=== PATIENT | female | born 1980 | race Caucasian/White ===

== ENCOUNTER 2021-07-12 00:19 | Inpatient (IN) | payer OTHER, SELFPAY ==
[2021-07-12 00:50] VITALS: BP 109/64; PULSE 53; RESP 18; TEMP 36.5; O2SAT 97
[2021-07-12 01:58] VITALS: BMI 31.7
--- NOTE | 2021-07-12 02:07 | PC.ADMIT ---
Patient is a 40 year old woman who was seen at [facility] ER after contacting [facility] on 07/05/21 for SI with a plan to OD. Tox screen was positive for opiates and cocain. She admits to using heroin. She reported having past thoughts of suicide but was not currently having any thoughts of self harm and feels safe on the unit and would seek help. She is and reports that her also uses substances. She reports that her and her are currently homeless. There is a reported history of depression and PTSD with past admissions to psychiatric unit in [place] and [place], she has not been a patient at [facility] prior to this admission.
[2021-07-12 06:00] VITALS: BP 108/67; PULSE 62; TEMP 36.7; O2SAT 97
[2021-07-12] MEDS: LORazepam 0.5 MG TABLET PO ×2 (09:20→18:15)
[2021-07-12] MEDS: methADONE HCl 20 MG/2 ML ORAL.CONC 75 MG PO (09:21)
--- NOTE | 2021-07-12 11:49 | P.CONHOSP_ITS ---
History of Present Illness Data of Consult Service Date: 07/12/21 Primary Care Provider: Renato Beckham MD HPI Reason for consult: Medical H&P This is a 40 yo F who reports no chronic medical problems. She is admitted to the inpatient psych unit. She denies any current medical complaints. PSH Partial Hysterectomy, b/l Knee surgeries PMH Denies FH DM SH smokes 1/2 PPD denies EtOH Reports heroin use (snorts) -- on methadone, reports started several days ago Review of Systems Review of Systems: negative except HPI PMFSH Social History Household Members: None Housing: Homeless Do you presently have visiting nurse or other home services: No Unable to assess alcohol history related to: Unknown Patient Tobacco Use Status: Current everyday Tobacco user Tobacco use type: Cigarette Cigarette Packs Per Day: 0.5 Cigarettes Per Day: 10.0 Smoked in Last 30 Days: Yes e-Cigarette/Vaping Use: Never Used Patient Interested in Nicotine Replacement: Yes Patient Given Instructions on How to Stop Smoking: Yes Date Education Initiated: 07/15/21 Second Hand Smoke Exposure: Yes Use of substances other than those prescribed or required for medical reasons: Yes Substance Use Type: Crack/Cocaine, Heroin, Marijuana and Caffiene Substance Use Frequency: Recent Binge Last Used Substance: Days (ago) Last Used Substance Other:: 07/08/21 Currently Displaying Signs/Symptoms of Drug Intoxication Withdrawal: No Any prior treatment program specific to substance use: No Have you been hit, kicked, punched, or otherwise hurt by someone within the past year? If so, by whom?: No Do you feel safe in your current relationship?: Yes Is there a partner from a previous relationship who is making you feel unsafe now?: No Are you made to feel afraid or neglected: No Advance Directives: No Advance Directives Information Provided: No Do you have thoughts of harming others: None Do you have a plan to hurt others: No Plan Recently lost weight without trying: Yes How much weight loss: 14-23 pounds Eating poorly because of decreased appetite: Yes Nutrition screen score: 5 Nutrition Risks: No Nutritional Risk : No Meds Allergies Allergy/AdvReac Type Severity Reaction Status Date / Time coconut Allergy Severe Hives Verified 07/12/21 01:35 carbamazepine [From Tegretol] Allergy Intermediate Hives Verified 07/12/21 01:35 bupropion [From Wellbutrin] AdvReac Severe Hives Verified 07/12/21 01:35 Active Medications: Current Medications Acetaminophen (Acetaminophen 325 Mg Tablet) 650 mg PO Q6H PRN PRN Reason: Headache/Pain Mild Scale (1-3) Al Hydroxide/Mg Hydroxide (Magnesium Hydrox/Alum Hydrox 30 Ml Oral.Susp) 30 ml PO Q6H PRN PRN Reason: Heartburn/Nausea Cyclobenzaprine HCl (Cyclobenzaprine Hcl 5 Mg Tablet) 5 mg PO TID [facility] Last Admin: 07/12/21 08:22 Dose: Not Given Documented by: Hydroxyzine HCl (Hydroxyzine Hcl 25 Mg Tablet) 25 mg PO BEDTIME PRN PRN Reason: Anxiety Lorazepam (Lorazepam 0.5 Mg Tablet) 0.5 mg PO Q8H PRN PRN Reason: Anxiety Last Admin: 07/12/21 09:20 Dose: 0.5 mg Documented by: Magnesium Hydroxide (Milk Of Magnesia 30 Ml Oral.Susp) 30 ml PO DAILY PRN PRN Reason: Constipation Methadone HCl (Methadone Hcl 20 Mg/2 Ml Oral.Conc) 75 mg PO DAILY [facility] Last Admin: 07/12/21 09:21 Dose: 75 mg Documented by: Trazodone HCl (Trazodone Hcl 50 Mg Tablet) 50 mg PO BEDTIME PRN PRN Reason: Insomnia Home Medications Medication Instructions Recorded Confirmed Last Taken Type alprazolam 1 mg tablet 1 tab PO DAILY PRN 07/12/21 07/12/21 Unknown History alprazolam 2 mg tablet 1 tab PO BID 07/12/21 07/12/21 Unknown History cyclobenzaprine 5 mg tablet 1 tab PO TID 07/12/21 07/12/21 Unknown History methadone 10 mg/mL oral syringe 75 mg PO DAILY 07/12/21 07/12/21 07/10/21 History (FOR ORAL USE ONLY) Physical Exam Vital Signs and Narrative: Vital Signs: Last Vital Signs Temp 98.1 F 07/12/21 06:00 Pulse 62 07/12/21 06:00 Resp 18 07/12/21 00:50 BP 108/67 07/12/21 06:00 Pulse Ox 97 07/12/21 06:00 BMI result Body Mass Index 31.7 Const: Other: General - no acute distress, appears comfortable Cardiovascular - regular rate and rhythm, S1-S2 Lungs - normal respiratory effort, clear to auscultation bilaterally, no wheezing Abdomen - soft, nontender, no rebound or guarding Extremities - no edema bilaterally Neuro - awake and alert, no focal deficits; CN 2-12 in tact b/l Assessment and Plan (1) Routine medical exam: Status: Acute Plan This is a 40 yo with no significant PMH (except OUD on Methadone), who is admitted to the inpatient psych unit. Medical consult requested for routine medical H&P. Patient has no active medical issues. Continue Methadone as you are currently doing. Medically stable, will sign off. Please reconsult PRN
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
[2021-07-12 18:00] VITALS: BP 117/65; PULSE 55; RESP 16; TEMP 36.4; O2SAT 97
[2021-07-12] MEDS: QUEtiapine Fumarate 50 MG TABLET PO (19:12)
[2021-07-12] MEDS: QUEtiapine Fumarate 100 MG TABLET PO (19:54)
[2021-07-13 06:00] VITALS: BP 110/68; PULSE 58; RESP 16; TEMP 36.6; O2SAT 98
[2021-07-13] MEDS: methADONE HCl 20 MG/2 ML ORAL.CONC 75 MG PO (08:58)
[2021-07-13] MEDS: DULoxetine HCl 30 MG CAPSULE.DR PO (08:58)
[2021-07-13] MEDS: QUEtiapine Fumarate 50 MG TABLET PO ×2 (09:40→14:39)
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
[2021-07-13 18:58] VITALS: BP 124/68; PULSE 55; RESP 16; TEMP 36.3; O2SAT 98
[2021-07-13] MEDS: QUEtiapine Fumarate 100 MG TABLET PO (20:17)
[2021-07-13] MEDS: Milk of Magnesia 30 ML ORAL.SUSP PO (20:19)
[2021-07-14 06:00] VITALS: BP 106/62; PULSE 78; RESP 16; TEMP 36.5; O2SAT 96
[2021-07-14] MEDS: methADONE HCl 20 MG/2 ML ORAL.CONC 75 MG PO (08:46)
[2021-07-14] MEDS: DULoxetine HCl 30 MG CAPSULE.DR PO (08:47)
[2021-07-14] MEDS: QUEtiapine Fumarate 50 MG TABLET PO ×2 (09:52→16:36)
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
[2021-07-14 16:38] VITALS: BP 109/72; PULSE 66; RESP 16; TEMP 36.2; O2SAT 96
[2021-07-14] MEDS: QUEtiapine Fumarate 100 MG TABLET PO (19:59)
[2021-07-15 06:00] VITALS: BP 100/54; PULSE 51; RESP 16; TEMP 36.6; O2SAT 97
[2021-07-15] MEDS: methADONE HCl 20 MG/2 ML ORAL.CONC 75 MG PO (08:27)
[2021-07-15] MEDS: DULoxetine HCl 30 MG CAPSULE.DR PO (08:28)
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
[2021-07-15] MEDS: QUEtiapine Fumarate 50 MG TABLET PO ×2 (11:14→15:41)
[2021-07-15 16:31] VITALS: BP 92/55; PULSE 65; TEMP 36; O2SAT 97
[2021-07-15] MEDS: QUEtiapine Fumarate 100 MG TABLET PO (20:29)
[2021-07-16 06:00] VITALS: BP 119/58; PULSE 55; RESP 16; TEMP 36.8; O2SAT 96
[2021-07-16] MEDS: methADONE HCl 20 MG/2 ML ORAL.CONC 75 MG PO (08:46)
[2021-07-16] MEDS: DULoxetine HCl 30 MG CAPSULE.DR PO (08:46)
[2021-07-16] MEDS: QUEtiapine Fumarate 50 MG TABLET PO (09:58)
--- NOTE | 2021-07-16 11:01 | PC.NURSE ---
Addendum entered by Steff Go RN 07/16/21 13:38: pt changed her mind and would like nicotine replacement Original Note: PT REFUSES FLU VACCINATION. DOES NOT WANT NICOTINE REPLACEMENT ORDERED.
[2021-07-16] MEDS: Nicotine 21 MG PATCH.TD24 TRANSDERMA (15:07)
[2021-07-16 16:45] VITALS: BP 120/58; PULSE 58; TEMP 36.9; O2SAT 98
[2021-07-16] MEDS: LORazepam 1 MG TABLET PO (17:06)
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
[2021-07-16] MEDS: QUEtiapine Fumarate 25 MG TABLET 75 MG PO (18:59)
[2021-07-16] MEDS: QUEtiapine Fumarate 50 MG TABLET 150 MG PO (20:35)
[2021-07-17] MEDS: Nicotine 21 MG PATCH.TD24 TRANSDERMA (08:40)
[2021-07-17] MEDS: methADONE HCl 20 MG/2 ML ORAL.CONC 75 MG PO (08:40)
[2021-07-17] MEDS: DULoxetine HCl 60 MG CAPSULE.DR PO (08:41)
[2021-07-17] MEDS: QUEtiapine Fumarate 25 MG TABLET 75 MG PO (08:41)
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
[2021-07-17] MEDS: Naloxone HCl Nasal TAKE HOME 4 MG SPRAY NOSTRILALT (13:04)
--- NOTE | 2021-07-17 14:48 | P.EN_ITS ---
Event Note Date of Service: 07/17/21 Event Note: Met with patient to discuss process of switching from methadone to Suboxone. She reports that she is being discharged his afternoon, and will follow up with clinic, [facility] regarding wishing to do this.
== END 2021-07-17 14:05 | disposition home or self-care (01) | DRG 751 ==
PROVIDERS: Admitting Provider Psychiatry & Neurology Psychiatry; PCP Colon & Rectal Surgery; Visit Provider Psychiatry & Neurology Psychiatry
DX: F33.1 Major depressive disorder, recurrent, moderate (principal); R45.851 Suicidal ideations; F11.20 Opioid dependence, uncomplicated; F17.210 Nicotine dependence, cigarettes, uncomplicated; F43.12 Post-traumatic stress disorder, chronic; F14.10 Cocaine abuse, uncomplicated; Z71.6 Tobacco abuse counseling; Z79.899 Other long term (current) drug therapy

== ENCOUNTER 2022-12-09 09:01 | Emergency (ER) | payer OTHER, SELFPAY ==
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
[2022-12-09 09:10] VITALS: BP 148/68; PULSE 69; RESP 18; TEMP 36; O2SAT 95; BMI 31.9
[2022-12-09] MEDS: predniSONE 20 MG TABLET 60 MG PO (11:41)
[2022-12-09] MEDS: Ibuprofen 800 MG TABLET PO (11:41)
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
--- NOTE | 2022-12-09 11:52 | PC.NURSE ---
miroslava wrap applied to pts left knee, pt reports relief with wrap
[2022-12-09 12:15] LABS: IDNOW Serial# 08D9AD1C; Strep A Nucleic Acid Negative (Negative)
== END 2022-12-09 12:22 | disposition home or self-care (01) ==
PROVIDERS: Physician Assistant; Emergency Provider Emergency Medicine
DX: M25.562 Pain in left knee (principal); R07.0 Pain in throat; F17.210 Nicotine dependence, cigarettes, uncomplicated; Z71.6 Tobacco abuse counseling; Z79.899 Other long term (current) drug therapy
CPT/HCPCS: 73564; 87651; 99283

== ENCOUNTER 2023-05-17 11:59 | Emergency (ER) | payer OTHER, SELFPAY ==
--- NOTE | ~2023-05-17 | XR_ITS ---
EXAMINATION: XR HAND, LEFT CLINICAL INFORMATION: Fracture, reduced and swollen. COMPARISON: None available. TECHNIQUE: PA, lateral, and oblique views of the left hand. FINDINGS: The bones and soft tissues are normal. No fracture. Alignment is anatomic. Joint spaces are maintained. No erosions or soft tissue calcifications. XR/XR hand LT min 3V IMPRESSION: Normal left hand.
[2023-05-17 12:12] VITALS: BP 108/72; PULSE 78; RESP 18; TEMP 36.9; O2SAT 92; BMI 37.6
--- NOTE | 2023-05-17 12:33 | ED_ITS ---
HPI - Fall General Chief Complaint: Fall Stated Complaint: Hand injury Time Seen by Provider: 05/17/23 13:47 Source: patient Mode of arrival: ambulatory Limitations: no limitations History of Present Illness HPI Narrative: 42 year old female, 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, with pmhx significant for PTSD, opioid use disorder, and MDD presents to the ED today with left hand pain s/p mechanical trip and fall from standing height last night. Reports carrying bags into her house when she tripped and fell into her refrigerator, hitting the left side of her body. Denies head strike or LOC. Endorses pain/ swelling to her left ring finger and diffuse body aches at present secondary to fall. Has been taking Motrin at home with some relief. Denies headache, dizziness, vision changes, nausea, vomiting, numbness/tingling/weakness to LUE. Related Data Home Medications Medication Instructions Recorded Confirmed alprazolam 1 mg tablet 1 tab PO DAILY PRN anxiety 07/12/21 07/12/21 methadone 10 mg/mL oral syringe 75 mg PO DAILY 07/12/21 07/12/21 (FOR ORAL USE ONLY) Previous Rx's Medication Instructions Recorded duloxetine 60 mg capsule,delayed 60 mg PO DAILY 30 days #30 caps 07/17/21 release nicotine 21 mg/24 hr daily 21 mg transdermal DAILY PRN 07/17/21 transdermal patch smoking cessation 28 days #28 ea quetiapine 100 mg tablet 150 mg (1.5 x 100 mg) PO BEDTIME 07/17/21 PRN insomnia 30 days #30 tabs quetiapine 25 mg tablet 75 mg (3 x 25 mg) PO TID PRN 07/17/21 anxiety 30 days #120 tabs naproxen 500 mg tablet 500 mg PO BID PRN pain 7 days #14 12/09/22 tabs prednisone 20 mg tablet 40 mg (2 x 20 mg) PO DAILY 5 days 12/09/22 #10 tabs cyclobenzaprine 5 mg tablet 5 mg PO BEDTIME PRN muscle spasm 05/17/23 #4 tabs lidocaine 5 % topical patch 1 patch topical DAILY #15 ea 05/17/23 (Lidoderm) naproxen 500 mg tablet 500 mg PO Q8-12H PRN pain (scale 05/17/23 score 4-6) #14 tabs Allergies Allergy/AdvReac Type Severity Reaction Status Date / Time coconut Allergy Severe Hives Verified 04/09/23 15:24 carbamazepine [From Tegretol] Allergy Intermediate Hives Verified 04/09/23 15:24 bupropion [From Wellbutrin] AdvReac Severe Hives Verified 04/09/23 15:24 Review of Systems Review of Systems: Constitutional: No fever, chills, fatigue, night sweats, weight changes ENT/Mouth: No ear pain, hearing loss, nasal congestion, sinus pain, rhinorrhea, sore throat Eyes: No eye pain, swelling, redness, vision changes, discharge Cardio: No chest pain, palpitations, SALDAÑA, orthopnea, peripheral edema Pulm: No SOB, cough, sputum, wheezing, dyspnea, hemoptysis GI: No nausea, vomiting, hematemesis, abdominal pain, diarrhea, constipation, hematochezia, melena : No irregular bleeding, dysuria, frequency, urgency, hesitancy, hematuria, flank pain, urinary flow changes, urinary incontinence or retention MSK: No back pain, neck pain, joint pain, +myalgias, +left hand pain Skin: No lesions, rashes Neuro: No weakness, numbness, paresthesias, LOC, dizziness, headache All other systems reviewed and are negative. [facility] Past Medical History Attestation statement: The following information was validated with the patient. Source: old records reviewed and nursing notes reviewed Social History Social History Household Members: None Housing: Homeless Do you presently have visiting nurse or other home services: No Unable to assess alcohol history related to: Unknown Patient Tobacco Use Status: Current everyday Tobacco user Tobacco use type: Cigarette Cigarette Packs Per Day: 0.5 Cigarettes Per Day: 10.0 e-Cigarette/Vaping Use: Never Used Second Hand Smoke Exposure: Yes Substance Use Type: Crack/Cocaine, Heroin, Marijuana and Caffiene Advance Directives: No Advance Directives Information Provided: No service: No Sexual orientation: Did not discuss Physical Exam Vital Signs: Vital Signs: Last Vital Signs Temp 98.4 F 05/17/23 12:12 Pulse 78 05/17/23 12:12 Resp 18 05/17/23 12:12 BP 108/72 05/17/23 12:12 Pulse Ox 92 05/17/23 12:12 O2 Del Method Room Air 05/17/23 12:12 BMI result Body Mass Index 37.6 Vital signs stable Const: General: cooperative, healthy appearing, comfortable, no acute distress, alert and awake Orientation/consciousness: patient oriented x3 Limitations: no limitations HEENT: Head: Yes No palpable skull fracture present, Yes normocephalic and Yes atraumatic Eyes: General: appearance normal, both eyes and all related structures Neck: Neck: Yes normal visual inspection and Yes full ROM Resp: Effort & Inspection: normal respiratory effort Auscultation: clear to auscultation bilaterally Cardio: Other: + 2+ radial pulses to left upper extremi ty Rate: regular rate Rhythm: regular rhythm GI: Inspection: Yes normal to inspection and No abdominal wall ecchymosis Palpation (GI): Soft to palpation and nontender Back/Spine/Pelvis: Other: No midline spinous tenderness. No paraspinal muscle tenderness. No step off deformity. Skin: General skin exam: no rashes or lesions noted Neuro: General: patient oriented x3, gait normal and moves all extremities Extrem: Other: + ecchymosis and swelling noted to the l eft 4th proximal phalange. Slight dec in ROM to left 4th PIP secondary to swelling. Full ROM intact to MCP and DIP of 4th digit. Finger to thumb opposition intact. No palpable warmth or fluctuance. No palpable deformity. Full ROM intact to left wrist. No snuffbox tenderness. No broken nails. 2+ radial pulses intact. General: Yes normal exam except as noted Course Course Course Narrative: This is an RME: Additional HPI, ROS, PE not included below will be deferred to primary provider. Patient is a 42-year-old female who presents emergency department for evaluation after mechanical trip and fall. Denies head strike or loss of consciousness. Landed on the left side, diffuse myalgia. Reporting pain predominantly to the left hand Reevaluation(s) Reevaluation #1: 1350-- x-ray left hand does not exhibit acute fracture or dislocation. Patient likely has a contusion with diffuse myalgias secondary to falling into the refrigerator. Informed patient of imaging results. Advised her to ice her hand as needed for discomfort. She may take Tylenol and ibuprofen as needed at home for pain. Will provide her with a referral to Ortho. Discussed worrisome signs and symptoms and when to return to the emergency department. Patient has remained stable throughout ED visit today. All questions answered at this time. Patient is agreeable with disposition and stable for discharge. Medications Administered Discontinued Medications Generic Name Dose Route Start Last Admin Trade Name Gasper PRN Reason Stop Dose Admin Acetaminophen 975 mg 05/17/23 14:05 05/17/23 14:30 Acetaminophen 325 Mg Tablet PO 05/17/23 14:06 975 mg ONCE ONE Administration Ketorolac Tromethamine 15 mg 05/17/23 14:40 05/17/23 14:45 Ketorolac Tromethamine 15 Mg/Ml Vial IM 05/17/23 14:41 15 mg ONCE ONE Administration Medical Decision Making Medical Decision Making MDM Narrative: 42 year old female with pmhx significant for PTSD, opioid use disorder, and MDD presents to the ED today with left hand pain s/p mechanical trip and fall from standing height [employer]ATION [employer]INE[employer]. Vital signs stable. Patient is nontoxic appearing and in no acute distress. On exam, there is cchymosis and swelling noted to the left 4th proximal phalange. Slight dec in ROM to left 4th PIP secondary to swelling. Full ROM intact to MCP and DIP of 4th digit. Finger to thumb opposition intact. No palpable warmth or fluctuance. No palpable deformity. Full ROM intact to left wrist. No snuffbox tenderness. No broken nails. 2+ radial pulses intact. Exam nonfocal. Clinical concern for MSK sprain/strain, fracture, dislocation. Unlikely compartment syndrome, neurovascular compromise, threat to limb, scaphoid fracture. Unlikely concussion, ICH, CVA/TIA. Plan for imaging, pain control, and re-evaluation. Differential Diagnosis Differential Diagnoses: The differential diagnosis associated with the presentation includes As above. Admission/Observation Not indicated. Independent Interpretation I performed an independent interpretation of an: Plain X-Ray Interpretation: X-ray left hand without fracture or dislocation, agree with radiologist's interpretation. Radiology Impression Discussion of test interpretation with radiology: I have reviewed the radiologist's reading. Radiologist Impression: XR hand LT min 3V IMPRESSION: Normal left hand. External Record Review External record reviewed: Inpatient record Prescription Management I considered prescription management with: Pain Medication Critical Care Time Critical Care Time Critical Care Time: No Discharge Plan Discharge Clinical Impression: Left hand pain Patient Disposition: Home, Self-Care Instructions: R.I.C.E. Treatment (ED) Additional Instructions: Your imaging studies today did not show acute fracture. Your pain is likely musculoskeletal. Use ice several times per day for 20 minutes at a time for the next 48 hours and then change to heat. Flexeril is a muscle relaxer. Take this as needed for body aches/ muscle spasm. Do not drink, drive, or operate heavy machinery while taking this as it makes you drowsy. Take this at night prior to going to bed. Naproxen is an anti-inflammatory / pain medication. Take with food. Do not take this with Ibuprofen or other NSAIDS as this can increase risk of GI bleeding. In addition you may take Tylenol at home. Follow up with your primary care provider as needed If your pain worsens, if you develop new numbness, tingling, weakness, loss of bowel or bladder function call 911 or return to the ER immediately for evaluation. Prescriptions: New lidocaine [Lidoderm] 5 % adhesive patch,medicated 1 patch topical DAILY Qty: 15 0RF Rx Instructions: leave on most painful area for up to 12 hrs naproxen 500 mg tablet 500 mg PO Q8-12H PRN (Reason: pain (scale score 4-6)) Qty: 14 0RF cyclobenzaprine 5 mg tablet 5 mg PO BEDTIME PRN (Reason: muscle spasm) Qty: 4 0RF No Action alprazolam 1 mg tablet 1 tab PO DAILY PRN (Reason: anxiety) methadone 10 mg/mL Syringe 75 mg PO DAILY nicotine 21 mg/24 hr Patch 24 Hour 21 mg transdermal DAILY PRN (Reason: smoking cessation) 28 Days Qty: 28 0RF duloxetine 60 mg Capsule,Delayed Release(Dr/Ec) 60 mg PO DAILY 30 Days Qty: 30 0RF quetiapine 25 mg Tablet 75 mg PO TID PRN (Reason: anxiety) 30 Days Qty: 120 0RF quetiapine 100 mg tablet 150 mg PO BEDTIME PRN (Reason: insomnia) 30 Days Qty: 30 0RF prednisone 20 mg tablet 40 mg PO DAILY 5 Days Qty: 10 0RF naproxen 500 mg tablet 500 mg PO BID PRN (Reason: pain) 7 Days Qty: 14 0RF Referrals: [facility] [Provider Group] Interventions: ED Discharge Assessment Last Done: 05/17/23 14:50 Discharge Date/Time: 05/17/23 14:52
[2023-05-17] MEDS: Acetaminophen 325 MG TABLET 975 MG PO (14:30)
[2023-05-17] MEDS: Ketorolac Tromethamine 15 MG/ML VIAL IM (14:45)
== END 2023-05-17 14:52 | disposition home or self-care (01) ==
PROVIDERS: Emergency Provider Student in an Organized Health Care Education/Training Program; PCP Nurse Practitioner Family
DX: M79.642 Pain in left hand (principal); Z91.81 History of falling
CPT/HCPCS: 73130; 96372; 99283; 99284; J1885

== ENCOUNTER 2023-06-12 10:43 | Outpatient (REF) | payer OTHER, SELFPAY ==
--- NOTE | ~2023-06-12 | XR_ITS ---
EXAMINATION: XR HAND, LEFT CLINICAL INFORMATION: Pain left hand fourth digit. COMPARISON: 05/17/2023. TECHNIQUE: PA, lateral, and oblique views of the left hand. FINDINGS: Moderate degenerative changes in the first carpometacarpal joint with joint space narrowing and hypertrophic change. Mild degenerative changes in scattered IP joints and MCP joints. No displaced fracture of the fourth digit is appreciated. Ulnar minus variance XR/XR hand LT min 3V IMPRESSION: 1. Moderate degenerative changes in the first carpometacarpal joint. 2. Mild degenerative changes in scattered IP joints and MCP joints. 3. Recommend follow up imaging in 10-14 days if fracture is suspected.
--- NOTE | ~2023-06-12 | XR_ITS ---
EXAMINATION: XR KNEE, LEFT XR KNEE STANDING, BILATERAL CLINICAL INFORMATION: Fracture, reduced and swollen. COMPARISON: None available. TECHNIQUE: AP standing view of bilateral knees. Lateral and sunrise views of the left knee. FINDINGS: LEFT KNEE: Three views of the left knee demonstrate trace joint effusion. Moderate medial joint space narrowing. Tiny tricompartmental osteophytes. RIGHT KNEE: Single AP view of the right knee demonstrates moderate medial joint space narrowing. Tiny medial and lateral marginal osteophytes. XR/XR knee LT 2V IMPRESSION: 1. Moderate degenerative changes left knee. 2. Moderate degenerative changes right knee.
--- NOTE | ~2023-06-12 | XR_ITS ---
EXAMINATION: XR KNEE, LEFT XR KNEE STANDING, BILATERAL CLINICAL INFORMATION: Fracture, reduced and swollen. COMPARISON: None available. TECHNIQUE: AP standing view of bilateral knees. Lateral and sunrise views of the left knee. FINDINGS: LEFT KNEE: Three views of the left knee demonstrate trace joint effusion. Moderate medial joint space narrowing. Tiny tricompartmental osteophytes. RIGHT KNEE: Single AP view of the right knee demonstrates moderate medial joint space narrowing. Tiny medial and lateral marginal osteophytes. XR/XR knee standing BI IMPRESSION: 1. Moderate degenerative changes left knee. 2. Moderate degenerative changes right knee.
== END 2023-06-12 10:44 | disposition home or self-care (01) ==
LOC: HO.HOSX 10:43
PROVIDERS: PCP Nurse Practitioner Family; Visit Provider Physician Assistant
DX: S69.92XA Unspecified injury of left wrist, hand and finger(s), initial encounter (principal); M25.642 Stiffness of left hand, not elsewhere classified; M17.12 Unilateral primary osteoarthritis, left knee; M25.561 Pain in right knee; X58.XXXA Exposure to other specified factors, initial encounter; Y93.9 Activity, unspecified; Y92.9 Unspecified place or not applicable; Y99.9 Unspecified external cause status; Z79.899 Other long term (current) drug therapy
CPT/HCPCS: 73130; 73560; 73565; 99202

== ENCOUNTER 2023-06-12 10:43 | Outpatient (AMB) | payer OTHER, SELFPAY ==
--- NOTE | 2023-06-12 10:49 | MHC.OFFVIS ---
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 Patient reports that her knee gave out causing her to fall on her left side hitting her face into the refrigerator. She presented to [facility] [place] [facility] the following day where xrays were done and placed in a finger splint. Currently she is unable to bend her finger at her PIP. States numbness and tingling. Hx of left hand middle finger reconstruction. She also has complaints of knee pain and lower back pain that radiates down her leg. She describes the pain as a liquid fire and will wake up in pain. She is unable to stand for more than a minute due to her pain. Hx of back injury as a child. Hx of multiple left knee surgery. Allergies coconut Allergy (Severe, Verified 04/09/23 15:24) Hives carbamazepine [From Tegretol] Allergy (Intermediate, Verified 04/09/23 15:24) Hives bupropion [From Wellbutrin] Adverse Reaction (Severe, Verified 04/09/23 15:24) Hives musle relaxer Adverse Reaction (Uncoded 06/12/23 10:57) ineffective, tegretol allergy Medication List - Last Reconciled 06/12/23 by Deven George PA-C alprazolam 1 tab PO DAILY PRN cyclobenzaprine 5 mg PO BEDTIME PRN duloxetine 60 mg PO DAILY 30 days lidocaine 5% (Lidoderm) 1 patch topical DAILY methadone 75 mg PO DAILY naproxen 500 mg PO BID PRN 7 days naproxen 500 mg PO Q8-12H PRN nicotine 21 mg transdermal DAILY PRN 28 days prednisone 40 mg (2 x 20 mg) PO DAILY 5 days quetiapine 75 mg (3 x 25 mg) PO TID PRN 30 days quetiapine 150 mg (1.5 x 100 mg) PO BEDTIME PRN 30 days HPI [employer] REPRESENTATIVE-Left hand pain HPI Details 42-year-old female who presents to the office today for evaluation of left ring finger injury . She states her right knee gave out, causing her to fall on her left side hitting her face into the refrigerator, 05/16/23. She was seen at ED the next day where x-rays were performed and she was placed in a finger splint. She currently states she has numbness and tingling and she is unable to bend her finger at PIP. She has a history of left middle finger reconstruction. She also c/o ?liquid fire? pain in her left knee and lower back which radiates down to her leg. Her pain is aggravated after waking up and she is unable to stand for more than a minute due to her pain. She finds relief with ibuprofen. She has a history of back injury as a child. She has a history of multiple left knee surgeries. [facility] Surgical History (Updated 06/12/23 @ 11:10 by NIKKI Rosario) Hx of hand surgery Hx of arthroscopy of left knee Social History (Updated 06/12/23 @ 10:59 by NIKKI Rosario) Household Members: None Housing: Homeless Do you presently have visiting nurse or other home services: No Unable to assess alcohol history related to: Unknown Patient Tobacco Use Status: Current everyday Tobacco user Tobacco use type: Cigarette Cigarette Packs Per Day: 0.5 Cigarettes Per Day: 10.0 e-Cigarette/Vaping Use: Never Used Second Hand Smoke Exposure: Yes Substance Use Type: Crack/Cocaine, Heroin, Marijuana and Caffiene service: No Current occupational status: employed 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, 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 Sexual orientation: Did not discuss Review of Systems Const All systems reviewed & are unremarkable except as noted in HPI and below Physical Exam Const General: cooperative, healthy appearing, comfortable, no acute distress, well developed and alert Orientation/consciousness: patient oriented x3 HEENT Head: Yes normal to inspection, Yes normocephalic and Yes atraumatic Eyes General: appearance normal, both eyes and all related structures Resp Effort & Inspection: normal respiratory effort and able to speak in complete sentences Cardio Rate: regular rate Peripheral pulses: Peripheral pulses 2+ throughout GI Palpation (GI): Soft to palpation Skin Lesions: no lesions Rashes: no rashes Neuro General: patient oriented x3 Extrem Other: Left ring finger: Diffused swelling through the proximal end with tenderness along the PIP joint. No laxity with stress testing. Extensor tendons and FDP and FDS are intact. Left knee: Skin intact, no erythema or joint effusion. Tenderness along the medial and lateral joint line. Full ROM with crepitus. Negative Frank?s. No ligamentous laxity. NVI. Results Reviewed Results Reviewed: Xrays were obtained in the office today and personally reviewed by me of the left hand show avulsion fracture along the pip joint of the ring finger Xrays were obtained in the office today and personally reviewed by me of the left knee are negative for acute fracture or dislocation. mild oa present Assessment & Plan Assessment & Plan (1) Stiffness of finger joint of left hand: Code(s): M25.642 - Stiffness of left hand, not elsewhere classified (2) Injury of collateral ligament of finger: Code(s): S69.90XA - Unspecified injury of unspecified wrist, hand and finger(s), initial encounter Qualifiers: Encounter type: initial encounter Laterality: left Qualified Code(s): S69.92XA - Unspecified injury of left wrist, hand and finger(s), initial encounter (3) Osteoarthritis of left knee: Code(s): M17.12 - Unilateral primary osteoarthritis, left knee Qualifiers: Osteoarthritis type: primary Qualified Code(s): M17.12 - Unilateral primary osteoarthritis, left knee Plan Left ring finger: I stressed the importance of ROM of the left ring finger and we did work on some exercises in the office today. She will begin course of occupational therapy to improve her motion. I would like to see her back in 2-3 weeks for ROM check of her finger, sooner if needed. Left knee: An MRI of the left knee has been ordered to further evaluate the integrity of meniscus. She will see us back once the scan is complete. Orders: Orders MR knee LT wo con Today M17.12 - Unilateral primary osteoarthritis, left knee XR knee standing BI Today M25.561 - Pain in right knee, M25.562 - Pain in left knee XR knee LT 2V Today M25.562 - Pain in left knee XR hand LT min 3V Today M79.642 - Pain in left hand OT Evaluation and Treatment Today M25.642 - Stiffness of left hand, not elsewhere classified, S69.90XA - Unspecified injury of unspecified wrist, hand and finger(s), initial encounter Patient Instructions: Scribed for Deven George PA-C, by Jose Jenkins nuclear medicine medical director, on 06/12/2023 at 10:45 AM EST. IDeven PA-C, have personally reviewed and agree with the information entered by the scribe. Coding Level of Care Code New Pt Level 3 (95989) Diagnoses Stiffness of finger joint of left hand M25.642 Injury of collateral ligament of finger of left hand, initial encounter S69.92XA Encounter type: initial encounter Laterality: left Primary osteoarthritis of left knee M17.12 Osteoarthritis type: primary
== END 2023-06-12 12:05 | disposition home or self-care (01) ==
PROVIDERS: PCP Nurse Practitioner Family; Visit Provider Physician Assistant
DX: M25.642 Stiffness of left hand, not elsewhere classified (principal); S69.92XA Unspecified injury of left wrist, hand and finger(s), initial encounter; M17.12 Unilateral primary osteoarthritis, left knee
CPT/HCPCS: 99203

== ENCOUNTER 2023-06-25 13:00 | Outpatient (RCR) | payer OTHER, SELFPAY ==
--- NOTE | 2023-06-16 15:47 | MHC.OT.OEV ---
[address] [phone] F: [phone] Occupational Therapy Evaluation Patient Name: Ksenia Heath Diagnosis: (L)avulsion fracture along the pip joint of the ring finger Date of Onset: 05/16/23 Date of Surgery: Attending Provider: Deven George Prescribed Treatment: MD Follow Up Appointment: History of Current Condition: Patient is a 42 year old right handed female was was initially seen in the ED for a fall in the kitchen on 05/16/2023. She stated she her knees gave out and Cartwheeled into the refrigerator slamming her fingers into it. X-rays were taking which did not indicate a fx, however she was seen again and x-rays were retaken which indicated a (L)avulsion fx along the PIP joint of the 4th digit. She was referred to skilled OT by CHELO Jean for gentle range of motion. 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 (I)ADLs/IADLs Living Situation, Family and/or Social Support: Lives with partner Current Level of Function and Occupation Self Care, Employment, Leisure: mod (A) ADLs partner complete task Sleep: (I) Driving: Partner drives Vision: Balance: Pain Assessment Pain Score: 10 Pain Scale Used: Pain Location and Description: 0/10 10/10 when using it or it gets bumped Aggravating Factors: Alleviating Factors: Ibuprofen, neproxen Skin and Soft Tissue Assessment Skin and Soft Tissue: Comments: WFL Nerve assessment Ulnar Nerve: Median Nerve: Radial Nerve: Comments: Sensory Assessment Temperature: Light Touch: Proprioception: Vibration: Comments: Edema Assessment Upper Extremity: Lower Extremity: Comments: Dexterity Assessment Dexterity: Comments: Special Tests Comments: Finger opposition- impaired AROM(PROM) Strength Cervical Cervical Flexion: Cervical Extension: Cervical Lateral Flexion: Cervical Rotation: Comments: Shoulder Flexion: Extension: Abduction: Internal Rotation: External Rotation: Comments: Flexion: Extension: Abduction: Internal Rotation: External Rotation: Comments: Elbow Flexion: Extension: Pronation: Supination: Comments: Flexion: Extension: Pronation: Supination: Comments: Wrist Flexion: Extension: Ulnar Deviation: Radial Deviation: Comments: Flexion: Extension: Ulnar Deviation: Radial Deviation: Comments: Thumb Thumb CMC Flexion: Thumb MCP Flexion: Thumb IP Flexion: Radial Abduction: Palmar Abduction: Mcqueeney (Kapandji 0-10): Comments: Digits Index MCP: PIP: DIP: Long MCP: PIP: DIP: Ring MCP: PIP: DIP: Small MCP: PIP: DIP: Comments: Gross Grasp: Lateral Pinch: Two-Point Pinch: Three-Jaw Da: Comments: Patient Education Primary Language: Industry Analyst Required: No Current Knowledge: Teaching Method: Education Needs Identified on Evaluation: How did patient/family demonstrate learning? Barriers to Learning: Readiness for Learning: Who was educated? Comments: Plan of Care Assessment: Patient was referred to skilled OT for a (L)fx of the 4th digit on 05/16/2024. Patient stated her knees gave out and Cartwheeled into the refrigerator slamming her fingers into it Knee gave out and fell into the fridge and bent fingers backwards. She wore splint for 3 weeks and then it was d/c'd. 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 She reported 0/10 pain at rest and it can increase to 10/10 pain if it is bumped or she over uses it. She stated pins and needles in 3-5th digits when over using it. Her current ROM measurements are as follows: (L)PIP 71* 1st, 61* 2nd, 49* 3rd, 58* 4th. Cardiology Nurse Practitioner strength was not tested due to injury. Edema was present in the 4th and 5th digits. Quick DASH=70.5 indicating patient's perceived UE impairment during self care tasks. Based on inital evaluation patient's current level of function is mod (A) self care tasks as patient presents with impaired ROM, impaired functional activity tolerance as she reports 10/10 at times, impaired strength and impaired self care tasks. Due to the documented impairments it is recommended that patient receive skilled OT in order to achieve her PLOF and return to work. Thank you for your referral. STG Duration: 2 weeks Short Term Goals: Patient will report 8/10 pain in (L)ring finger Patient will increase (R)4th finger ROM by 10* for improved performance during self care tasks Patient will decrease edema in (R)finger LTG Duration: 4 weeks Jail Goals: Patient will report 0/10 pain in (L)ring finger Patient will have WFL ROM in (L)ring finger Patient will be (I) with HEP Frequency and Duration: The patient will be seen 2x a week for 4 weeks Treatment Plan: Therapeutic Exercise Therapeutic Activity Home Exercise Program Patient Education Edema Control ADL Training Fluidotherapy MHP Cold Packs Kinesiotaping OT eval and treat Electronically Signed By: Arlene Shine OTR/L, CLT Reviewed/agree with student documentation: Therapist: Please sign and return to therapist, Thank you for your referral.
== END 2023-07-31 12:53 | disposition home or self-care (01) ==
LOC: HO.OT 13:00
PROVIDERS: PCP Nurse Practitioner Family; Visit Provider Physician Assistant
DX: M25.642 Stiffness of left hand, not elsewhere classified (principal); S69.92XD Unspecified injury of left wrist, hand and finger(s), subsequent encounter
CPT/HCPCS: 97110; 97140; 97166

== ENCOUNTER 2023-07-01 11:32 | Outpatient (REF) | payer OTHER, SELFPAY ==
--- NOTE | ~2023-07-01 | XR_ITS ---
EXAMINATION: XR LUMBOSACRAL SPINE CLINICAL INFORMATION: Dorsalgia. COMPARISON: None available. TECHNIQUE: AP and lateral views of the lumbar spine and lateral view of the lumbosacral junction. FINDINGS: The vertebral bodies and posterior elements are normal. The disc spaces are preserved and the vertebral alignment is normal. There is very mild anterior spondylosis of the L4 and L5 upper endplates. The paraspinal soft tissues are normal. XR/XR lumbar spine 2-3V IMPRESSION: 1. No acute fracture or spondylolisthesis is seen. 2. The lumbar disc spaces are well-maintained. 3. There is very mild anterior spondylosis of the L4 and L5 upper endplates.
== END 2023-07-01 11:33 | disposition home or self-care (01) ==
LOC: HO.HOSX 11:32
PROVIDERS: Visit Provider Physical Medicine & Rehabilitation
DX: M53.3 Sacrococcygeal disorders, not elsewhere classified (principal); S39.012A Strain of muscle, fascia and tendon of lower back, initial encounter
CPT/HCPCS: 72100; 99202

== ENCOUNTER 2023-07-01 11:53 | Outpatient (AMB) | payer OTHER, SELFPAY ==
--- NOTE | 2023-07-01 12:01 | A.OFFVIS_ITS ---
Intake Vital Signs 07/01/23 12:06 Height 5 ft 8 in Weight 247 lb BMI 37.6 Intake Visit Reasons: Newprob-Back pain Intake Note: Ksenia is a 42 year old female who presents today for a evaluation of her mid/lower back, DOI 05/16/23. Patient reports ongoing pain for a couple of months. She states that her pain moves down to her legs. Patient reports her mid back pain is new like a couple weeks. Pain is worse when walking and standing/sitting for a long time. Allergies coconut Allergy (Severe, Verified 07/01/23 12:10) Hives carbamazepine [From Tegretol] Allergy (Intermediate, Verified 07/01/23 12:10) Hives cyclobenzaprine [From Flexeril] Allergy (Verified 07/01/23 12:18) Rash bupropion [From Wellbutrin] Adverse Reaction (Severe, Verified 07/01/23 12:10) Hives musle relaxer Adverse Reaction (Uncoded 06/12/23 10:57) ineffective, tegretol allergy Medication List - Last Reconciled 07/01/23 by Yuliya Chisholm MD duloxetine 60 mg PO DAILY 30 days lidocaine 5% (Lidoderm) 1 patch topical DAILY methadone 75 mg PO DAILY nicotine 21 mg transdermal DAILY PRN 28 days quetiapine 75 mg (3 x 25 mg) PO TID PRN 30 days quetiapine 150 mg (1.5 x 100 mg) PO BEDTIME PRN 30 days HPI HPI Comments History of Present Illness Details Here with partner. 05/16/23 knee gave out while she was car rying shopping bags. Hit left upper/hand. Had seen ortho for left finger. Knee MRI pending. Could not stand up due to pain on back the next day. Nowadays, midline, goes down to left side. Feels like fire like . Numbness on same area, left thigh area. Reports chronic back and sciatica. It did go left side before. Last MRI 2000. Injections [id number] in [place]. No surgery. [facility] Surgical History (Updated 06/12/23 @ 11:10 by NIKKI Rosario) Hx of hand surgery Hx of arthroscopy of left knee Social History (Updated 06/12/23 @ 10:59 by NIKKI Rosario) Household Members: None Housing: Homeless Do you presently have visiting nurse or other home services: No Unable to assess alcohol history related to: Unknown Patient Tobacco Use Status: Current everyday Tobacco user Tobacco use type: Cigarette Cigarette Packs Per Day: 0.5 Cigarettes Per Day: 10.0 e-Cigarette/Vaping Use: Never Used Second Hand Smoke Exposure: Yes Substance Use Type: Crack/Cocaine, Heroin, Marijuana and Caffiene service: No Current occupational status: employed 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 Patient was appropriately conversant and oriented. Good historian. MSK: No specific abnormalities found on inspection of the spine and all extremities. No pain with palpation over the lumbar area. Tender on quadratus lumborum. Tender on SI joint left. Lumbar ROM was full. Bilateral hip, knee and ankle ROM WNL. No ligamentous laxity or crepitance. No increased effusion. Straight-leg raising test negative. FABERE test positive bilateral. Strength is 5/5 in all muscle groups tested. No increased tone noted. Neurological: Neurologic examination of the upper and lower extremities was nonfocal with intact sensation, muscle stretch reflexes and without focal motor deficits . Martínez?s negative bilaterally. Babinski was down going bilaterally. Clonus was negative. Gait is antalgic without loss of balance. Results Reviewed Results Reviewed: I independently reviewed the results of the following: Lumbar x-rays done today in the office showed preserved disc spaces. I reviewed records from the following: Ortho Assessment & Plan Assessment & Plan (1) Lumbar strain: Code(s): S39.012A - Strain of muscle, fascia and tendon of lower back, initial encounter Qualifiers: Encounter type: initial encounter Qualified Code(s): S39.012A - Strain of muscle, fascia and tendon of lower back, initial encounter (2) Sacroiliac joint dysfunction of left side: Code(s): M53.3 - Sacrococcygeal disorders, not elsewhere classified Plan Fall last April, sustaining lumbar strain and left SI joint dysfunction. No fracture seen on x-ray done today. No signs of neurologic deficits. Referred to physical therapy. Patient eager to proceed. Assessment and plan discussed with patient, and patient was agreeable. All questions were answered thoroughly. Evaluate 4 to 6 weeks again. Yuliya Chisholm MD, JESUS Board Certified, [place] Board of Physical Medicine and Rehabilitation (ABPMR) Board Certified, [place] Board of Electrodiagnostic Medicine (ABEM) Orders: Orders XR lumbar spine 2-3V Today M54.9 - Dorsalgia, unspecified Coding Level of Care Code New Pt Level 4 (34937) Diagnoses Strain of lumbar region, initial encounter S39.012A Encounter type: initial encounter Sacroiliac joint dysfunction of left side M53.3
[2023-07-01 12:06] VITALS: BMI 37.6
== END 2023-07-01 13:15 | disposition home or self-care (01) ==
PROVIDERS: PCP Nurse Practitioner Family; Visit Provider Physical Medicine & Rehabilitation
DX: S39.012A Strain of muscle, fascia and tendon of lower back, initial encounter (principal); M53.3 Sacrococcygeal disorders, not elsewhere classified
CPT/HCPCS: 99204

== ENCOUNTER 2023-07-08 14:11 | Outpatient (AMB) | payer OTHER, SELFPAY ==
--- NOTE | 2023-07-08 14:16 | A.OFFVIS_ITS ---
Intake Intake Visit Reasons: OV-Left hand pain-follow up Intake Note: Anna a 42 year old female presents today as a new patient for an evaluation of left hand ring finger, DOI 05/16/23. Patient reports that she continues to work with OT with some improvement in her ROM. States concerns of the tip of her finger shifting. Allergies coconut Allergy (Severe, Verified 07/08/23 14:22) Hives carbamazepine [From Tegretol] Allergy (Intermediate, Verified 07/08/23 14:22) Hives cyclobenzaprine [From Flexeril] Allergy (Verified 07/08/23 14:22) Rash bupropion [From Wellbutrin] Adverse Reaction (Severe, Verified 07/08/23 14:22) Hives musle relaxer Adverse Reaction (Uncoded 07/08/23 14:22) ineffective, tegretol allergy HPI OV-Left hand pain-follow up HPI Details 42-year-old female who [facility] for a follow-up of left hand pain, 05/16/23. She continues to work on occupational therapy with mild relief. She does have concerns on the tip of her left ring finger shifting. She also reports she has pain and tingling sensation in her knee. [facility] Surgical History (Updated 06/12/23 @ 11:10 by NIKKI Rosario) Hx of hand surgery Hx of arthroscopy of left knee Social History (Updated 06/12/23 @ 10:59 by NIKKI Rosario) Household Members: None Housing: Homeless Do you presently have visiting nurse or other home services: No Unable to assess alcohol history related to: Unknown Patient Tobacco Use Status: Current everyday Tobacco user Tobacco use type: Cigarette Cigarette Packs Per Day: 0.5 Cigarettes Per Day: 10.0 e-Cigarette/Vaping Use: Never Used Second Hand Smoke Exposure: Yes Substance Use Type: Crack/Cocaine, Heroin, Marijuana and Caffiene service: No Current occupational status: employed 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, 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 Sexual orientation: Did not discuss Review of Systems Const All systems reviewed & are unremarkable except as noted in HPI and below Physical Exam Const General: cooperative, healthy appearing, comfortable, no acute distress, well developed and alert Orientation/consciousness: patient oriented x3 HEENT Head: Yes normal to inspection, Yes normocephalic and Yes atraumatic Eyes General: appearance normal, both eyes and all related structures Resp Effort & Inspection: normal respiratory effort and able to speak in complete sentences Cardio Rate: regular rate Peripheral pulses: Peripheral pulses 2+ throughout GI Palpation (GI): Soft to palpation Skin Lesions: no lesions Rashes: no rashes Neuro General: patient oriented x3 Extrem Other: Left hand: Normal to inspection. She continues to have swelling at the proximal end of her finger. She does have pain along the distal aspect of the finger. No laxity with stress testing. Left knee: Skin intact, no erythema or joint effusion. Tenderness along the medial and lateral joint line. Full ROM with crepitus. Negative Frank?s. No ligamentous laxity. NVI. Assessment & Plan Assessment & Plan (1) Stiffness of finger joint of left hand: Code(s): M25.642 - Stiffness of left hand, not elsewhere classified (2) Injury of collateral ligament of finger: Code(s): S69.90XA - Unspecified injury of unspecified wrist, hand and finger(s), initial encounter Qualifiers: Encounter type: initial encounter Laterality: left Qualified Code(s): S69.92XA - Unspecified injury of left wrist, hand and finger(s), initial encounter (3) Osteoarthritis of left knee: Code(s): M17.12 - Unilateral primary osteoarthritis, left knee Qualifiers: Osteoarthritis type: primary Qualified Code(s): M17.12 - Unilateral primary osteoarthritis, left knee Plan Left finger: She will continue working with occupational therapy. I did explain that the swelling in her finger may continue to be present and limit her motion for the next 6-8 weeks and may have no structural abnormality and full recovery till then. Left knee: She is working on home exercises and continues to have discomfort in left knee and pain with daily activities. An MRI of the left knee has been reordered to further evaluate the integrity of meniscus. She will follow-up once the scan is complete. Patient Instructions: Scribed for Deven George PA-C, by Jose Jenkins medical reimbursement manager, on 07/08/2023 at 2:15 PM EST. Deven Iqbal PA-C, have personally reviewed and agree with the information entered by the scribe. Coding Level of Care Code Est Pt Level 3 (37104) Diagnoses Stiffness of finger joint of left hand M25.642 Injury of collateral ligament of finger of left hand, initial encounter S69.92XA Encounter type: initial encounter Laterality: left Primary osteoarthritis of left knee M17.12 Osteoarthritis type: primary
== END 2023-07-08 14:33 | disposition home or self-care (01) ==
PROVIDERS: PCP Nurse Practitioner Family; Visit Provider Physician Assistant
DX: M25.642 Stiffness of left hand, not elsewhere classified (principal); S69.92XA Unspecified injury of left wrist, hand and finger(s), initial encounter; M17.12 Unilateral primary osteoarthritis, left knee
CPT/HCPCS: 99213

== ENCOUNTER → 2023-07-08 14:11 | Outpatient (BNVA) | payer OTHER, SELFPAY | PROVIDERS: PCP Nurse Practitioner Family; Visit Provider Physician Assistant | DX: M25.642 Stiffness of left hand, not elsewhere classified (principal); S69.92XA Unspecified injury of left wrist, hand and finger(s), initial encounter; M17.12 Unilateral primary osteoarthritis, left knee | CPT/HCPCS: 99212 ==

== ENCOUNTER 2023-10-01 09:26 | Outpatient (REF) | payer OTHER, SELFPAY ==
--- NOTE | ~2023-10-01 | XR_ITS ---
EXAMINATION: XR KNEE, LEFT CLINICAL INFORMATION: Pain in unspecified knee. COMPARISON: 06/12/2023, 12/09/2022. TECHNIQUE: AP and sunrise views of the left knee. FINDINGS: Left knee: Trace joint effusion. Tiny posterior patellar osteophytes. Alignment preserved. XR/XR knee LT 2V IMPRESSION: Trace joint effusion.
== END 2023-10-01 09:27 | disposition home or self-care (01) ==
LOC: HO.HOSX 09:26
PROVIDERS: Visit Provider Physician Assistant
DX: M25.462 Effusion, left knee (principal)
CPT/HCPCS: 73560; 99212

== ENCOUNTER 2023-10-01 15:01 | Outpatient (AMB) | payer OTHER, SELFPAY ==
--- NOTE | 2023-10-01 15:20 | A.OFFVIS_ITS ---
Intake Visit Reasons: new prob - left knee pain Intake Note: Ksenia a 42 year old female who presents today with a knee brace for a follow up of left knee OA. Patient reports ongoing pain for many years and it has been getting worse. She informed he she had two falls one in April and one in July. Hx of left knee surgery in her meniscus. She has a history for her knee giving out. She finds good support when using her knee brace. Pain is worse when using the stairs, standing and getting up from the sitting positions. No hx of P.T., however she does at home exercises. Allergies coconut Allergy (Severe, Verified 10/01/23 15:20) Hives carbamazepine [From Tegretol] Allergy (Intermediate, Verified 10/01/23 15:20) Hives cyclobenzaprine [From Flexeril] Allergy (Verified 10/01/23 15:20) Rash bupropion [From Wellbutrin] Adverse Reaction (Severe, Verified 10/01/23 15:20) Hives musle relaxer Adverse Reaction (Uncoded 07/08/23 14:22) ineffective, tegretol allergy Medication List - Last Reconciled 10/01/23 by Deven George PA-C duloxetine 60 mg PO DAILY 30 days lidocaine 5% (Lidoderm) 1 patch topical DAILY methadone 75 mg PO DAILY nicotine 21 mg transdermal DAILY PRN 28 days quetiapine 75 mg (3 x 25 mg) PO TID PRN 30 days quetiapine 150 mg (1.5 x 100 mg) PO BEDTIME PRN 30 days HPI HPI new prob - left knee pain: Details: 42-year-old female who presents to the office today for evaluation of left knee pain for years. She sustained 2 falls one in April and one in July. She states she has worsening pain in her left knee which is aggravated with stair use, standing and getting up from a sitting position. She also has a history of knee giving out. She had tried physical therapy in the past. She is working on exercises at home. She finds good relief with knee brace. She has a history of left knee meniscus surgery. [facility] Surgical History (Updated 06/12/23 @ 11:10 by NIKKI Rosario) Hx of hand surgery Hx of arthroscopy of left knee Social History Household Members: None Housing: Homeless Do you presently have visiting nurse or other home services: No Unable to assess alcohol history related to: Unknown Patient Tobacco Use Status: Current everyday Tobacco user Tobacco use type: Cigarette Cigarette Packs Per Day: 0.5 Cigarettes Per Day: 10.0 e-Cigarette/Vaping Use: Never Used Second Hand Smoke Exposure: Yes Substance Use Type: Crack/Cocaine, Heroin, Marijuana and Caffiene service: No Current occupational status: employed 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 Tenderness along the medial and lateral joint line. Full ROM with crepitus. Positive Frank?s. No ligamentous laxity. NVI. Assessment & Plan Assessment & Plan (1) Osteoarthritis of left knee: Code(s): M17.12 - Unilateral primary osteoarthritis, left knee Category: Medical Qualifiers: Osteoarthritis type: primary Qualified Code(s): M17.12 - Unilateral primary osteoarthritis, left knee Plan An MRI of the left knee was ordered to further evaluate the integrity of meniscus. She was also given a stabilizing knee brace for support. She will see me back once the scan is complete. Patient Instructions: Scribed for Deven George PA-C, by Jose Jenkins medical reimbursement manager, on 10/01/2023 at 3:00 PM EST. Deven Iqbal PA-C, have personally reviewed and agree with the information entered by the scribe. Coding Level of Care Code Est Pt Level 3 (76270) Diagnoses Primary osteoarthritis of left knee M17.12 Osteoarthritis type: primary
== END 2023-10-01 15:51 | disposition home or self-care (01) ==
PROVIDERS: PCP Nurse Practitioner Family; Visit Provider Physician Assistant
DX: M17.12 Unilateral primary osteoarthritis, left knee (principal)
CPT/HCPCS: 99213

== ENCOUNTER 2023-11-06 19:35 | Outpatient (REF) | payer OTHER, SELFPAY ==
--- NOTE | ~2023-11-06 | MR_ITS ---
EXAMINATION: MR KNEE WITHOUT CONTRAST, LEFT CLINICAL INFORMATION: Unilateral primary osteoarthritis of the left knee. COMPARISON: 10/01/2023. TECHNIQUE: MRI of the knee without contrast was performed using routine sequences on a high-field scanner. FINDINGS: MENISCI: Medial Meniscus: A horizontal cleavage tear at the posterior horn extends to the inner margin. There is inner margin fraying at the meniscal body as well with partial extrusion from the jointline. Lateral Meniscus: Inner margin fraying at the body. No tears. LIGAMENTS: Cruciate: Intact Collateral: Intact EXTENSOR MECHANISM: Minimal quadriceps tendinosis. Patellar tendon is normal. ARTICULAR CARTILAGE/BONE: Patellofemoral Compartment: Small marginal osteophytes are present at the patella. There is mild chondral thinning and surface irregularity at the medial trochlear facet. Medial Compartment: [id number] nonuniform chondral thinning is present in the medial tibial plateau with minimal chondral thinning and surface irregularity at the medial femoral condyle. Moderate size marginal osteophytes. Lateral Compartment: Mild chondral thinning is present at the lateral tibial plateau posteriorly with small marginal osteophytes. JOINT FLUID AND BURSAE: Trace joint effusion. No Alejandro's cyst. A thin multilocular cystic focus extends inferiorly from the medial joint line toward the pes anserine bursa, potentially corresponding to a multilocular ganglion cyst or parameniscal cyst. This measures approximately 1.1 x 0.2 x 1.1 cm. MR/MR knee LT wo con IMPRESSION: 1. Horizontal cleavage tear at the posterior horn of the medial meniscus. 2. Marked fraying of the lateral meniscal body without a discrete tear. 3. Mild tricompartmental osteoarthritis, most pronounced in the medial compartment. 1. Trace joint effusion.
== END 2023-11-06 19:36 | disposition home or self-care (01) ==
LOC: HO.MRI 19:35
PROVIDERS: PCP Nurse Practitioner Family; Visit Provider Physician Assistant
DX: M17.12 Unilateral primary osteoarthritis, left knee (principal)
CPT/HCPCS: 73721

== ENCOUNTER 2023-11-27 13:07 | Outpatient (AMB) | payer MEDICAID, SELFPAY ==
--- NOTE | 2023-11-27 13:10 | MHC.OFFVIS ---
Vital Signs 11/27/23 13:11 Height 5 ft 8 in Weight 220 lb BMI 33.4 Intake Visit Reasons: ov- mri review Intake Note: Ksenia is a 42 year old female who presents today with her partner for a MRI review of left knee. Stabilizing knee brace was given last visit. Patient reports she is having 12 out of 10 pain still if her knee gives out and 4 to 5 out of 10 on her better days. She says her knee gives out on her daily. She received a stabilizing brace her last visit but states if she wears the brace without long pants under it, the brace would fall down. She bought a knee brace from [employer] and states it has been offering her stability. Methadone 90 morning, 70 evening. Allergies coconut Allergy (Severe, Verified 11/27/23 13:11) Hives carbamazepine [From Tegretol] Allergy (Intermediate, Verified 11/27/23 13:11) Hives cyclobenzaprine [From Flexeril] Allergy (Verified 11/27/23 13:11) Rash bupropion [From Wellbutrin] Adverse Reaction (Severe, Verified 11/27/23 13:11) Hives musle relaxer Adverse Reaction (Uncoded 11/27/23 13:11) ineffective, tegretol allergy Medication List - Last Reconciled 11/27/23 by Deven George PA-C duloxetine 60 mg PO DAILY 30 days lidocaine 5% (Lidoderm) 1 patch topical DAILY methadone 160 mg PO DAILY quetiapine 150 mg (1.5 x 100 mg) PO BEDTIME PRN 30 days HPI HPI ov- mri review: Details: 42-year-old female who returns to the office today for an MRI review of left knee. She reports she has chronic pain in her knee and rates the pain as 12 on the scale of 0-10 which gets down to about 5 on better days. She states her knee gives out daily. She has been using a knee brace with benefits. She does use Marijuana h/o heorine use, which is why she is on methadone currently . last time use of heorin 2 years Methadone clinic 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 Tenderness along the medial and lateral joint line. Full ROM with crepitus. Positive Frank?s. No ligamentous laxity. NVI. Results Reviewed Results Reviewed: MR knee LT wo con IMPRESSION: 1. Horizontal cleavage tear at the posterior horn of the medial meniscus. 2. Marked fraying of the lateral meniscal body without a discrete tear. 3. Mild tricompartmental osteoarthritis, most pronounced in the medial compartment. 1. Trace joint effusion. Assessment & Plan Assessment & Plan (1) Osteoarthritis of left knee: Code(s): M17.12 - Unilateral primary osteoarthritis, left knee Category: Medical Qualifiers: Osteoarthritis type: primary Qualified Code(s): M17.12 - Unilateral primary osteoarthritis, left knee Plan I discussed the extent of the injury to the patient and options available which include surgical intervention. I explained the procedure in detail along with the length of recovery and rehab course. I explained the risk, benefits and alternatives. Risk including, but not limited to infection, blood clots, bleeding, ongoing pain and stiffness. I answered all their questions and with their understanding they have consented to move forward with left knee arthroscopy with Dr. Santana. The patient will be booked accordingly. Patient Instructions: Scribed for Deven George PA-C, by Jose Jenkins medical recruiter, on 11/27/2023 at 1:00 PM EST.? I, Deven George PA-C, have personally reviewed and agree with the information entered by the scribe. Coding Level of Care Code Est Pt Level 4 (86364) Diagnoses Primary osteoarthritis of left knee M17.12 Osteoarthritis type: primary
[2023-11-27 13:11] VITALS: BMI 33.4
== END 2023-11-27 14:12 | disposition home or self-care (01) ==
LOC: HO.HOS 13:07
PROVIDERS: PCP Nurse Practitioner Family; Visit Provider Physician Assistant
DX: M17.12 Unilateral primary osteoarthritis, left knee (principal); S83.242A Other tear of medial meniscus, current injury, left knee, initial encounter
CPT/HCPCS: 99214

== ENCOUNTER → 2023-11-27 13:07 | Outpatient (BNVA) | payer MEDICAID, OTHER, SELFPAY | PROVIDERS: PCP Nurse Practitioner Family; Visit Provider Physician Assistant | DX: M17.12 Unilateral primary osteoarthritis, left knee (principal) | CPT/HCPCS: 99212 ==

== ENCOUNTER 2023-12-16 06:05 | Day surgery (SDC) | payer OTHER, SELFPAY ==
[2023-12-14 07:42] VITALS: BMI 33.4
--- NOTE | 2023-12-15 09:01 | P.CONAN_ITS ---
Documented by User: Arlene Vegas NP 12/15/23 09:03 HPI - Anesthesia Eval Consult details Narrative: 43yo F for Left Knee Arthroscopy Methadone daily PMFSH Active Problems Active Problems: All Active Problems Sacroiliac joint dysfunction of left side (Acute) Lumbar strain (Acute) Osteoarthritis of left knee (Acute) Injury of collateral ligament of finger (Acute) Stiffness of finger joint of left hand (Acute) Chronic post-traumatic stress disorder (PTSD) (Acute) Opioid use disorder, moderate, in early remission, on maintenance therapy (Acute) MDD (major depressive disorder), recurrent episode, moderate (Acute) Surgical History Surgical History Hx of hysterectomy Hx of hand surgery Hx of arthroscopy of left knee Social History Social History Household Members: None Housing: Homeless Do you presently have visiting nurse or other home services: No Unable to assess alcohol history related to: Unknown Patient Tobacco Use Status: Current everyday Tobacco user Tobacco use type: Cigarette Cigarette Packs Per Day: 0.5 Cigarettes Per Day: 20 e-Cigarette/Vaping Use: Never Used Second Hand Smoke Exposure: Yes Use of substances other than those prescribed or required for medical reasons: Yes Substance Use Type: Crack/Cocaine, Heroin, Marijuana and Caffiene Substance Use Type Other:: IV Heroin: 1 year clean Substance Use Frequency: Daily Are you DNR?: No Advance Directives: No Advance Directives Information Provided: Yes service: No Current occupational status: employed 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, 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 Sexual orientation: Did not discuss Meds Allergies Allergy/AdvReac Type Severity Reaction Status Date / Time coconut Allergy Severe Hives Verified 11/27/23 13:11 carbamazepine [From Tegretol] Allergy Intermediate Hives Verified 11/27/23 13:11 cyclobenzaprine Allergy Rash Verified 11/27/23 13:11 [From Flexeril] bupropion [From Wellbutrin] AdvReac Severe Hives Verified 11/27/23 13:11 musle relaxer AdvReac ineffective, Uncoded 11/27/23 13:11 tegretol allergy Home Medications ?Medication ?Instructions ?Recorded ?Confirmed ?Last Taken ?Type methadone 10 mg/mL oral concentrate 160 mg PO DAILY 11/27/23 12/16/23 12/16/23 History Exam Height,Weight and Vital Signs: Height 5 ft 8 in Weight 99.79 kg Assessment and Plan Assessment Anesthesia Assessment: Chart Reviewed Documented by User: Kati Paulson MD 12/16/23 07:29 PMFSH Family History Family history of problems with anesthesia: No Surgical History Surgical History Hx of hysterectomy Hx of hand surgery Hx of arthroscopy of left knee History of Problems with Anesthesia: No Social History Social History Household Members: None Housing: Homeless Do you presently have visiting nurse or other home services: No Unable to assess alcohol history related to: Unknown Patient Tobacco Use Status: Current everyday Tobacco user Tobacco use type: Cigarette Cigarette Packs Per Day: 0.5 Cigarettes Per Day: 20 e-Cigarette/Vaping Use: Never Used Second Hand Smoke Exposure: Yes Use of substances other than those prescribed or required for medical reasons: Yes Substance Use Type: Crack/Cocaine, Heroin, Marijuana and Caffiene Substance Use Type Other:: IV Heroin: 1 year clean Substance Use Frequency: Daily Are you DNR?: No Advance Directives: No Advance Directives Information Provided: Yes service: No Current occupational status: employed 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, 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 Sexual orientation: Did not discuss Meds Allergies Allergy/AdvReac Type Severity Reaction Status Date / Time coconut Allergy Severe Hives Verified 11/27/23 13:11 carbamazepine [From Tegretol] Allergy Intermediate Hives Verified 11/27/23 13:11 cyclobenzaprine Allergy Rash Verified 11/27/23 13:11 [From Flexeril] bupropion [From Wellbutrin] AdvReac Severe Hives Verified 11/27/23 13:11 musle relaxer AdvReac ineffective, Uncoded 11/27/23 13:11 tegretol allergy Home Medications ?Medication ?Instructions ?Recorded ?Confirmed ?Last Taken ?Type methadone 10 mg/mL oral concentrate 160 mg PO DAILY 11/27/23 12/16/23 12/16/23 History Exam Airway Mallampati Class: II TM Dist: >3cm Heart: rrr Lungs: cta Assessment and Plan Assessment Anesthesia Assessment: Anesthesia Plan Discussed Final Anesthetic Review Family History of Problems with Anesthesia: No History of Problems with Anesthesia: No NPO: Yes ASA Class: III (base line sao2 91, pt states that is her normal. resp treatmewnt given, will place on o2.) Final Preanesthetic Review: No Changes in Pt Med Stat, Meds/Allgs Chart Reviewed, Consent Obtained/Reviewed and Anes Risks/Benef Reviewed Patient Risk: Intermediate Procedure Risk: Intermediate Anesthetic Plan Anesthetic Plan: GA Disposition: Standard PACU
[2023-12-16] VITALS (8 sets, daily range): BP systolic 117–135; BP diastolic 62–78; PULSE 76–88; RESP 14–16; TEMP 36.2–36.6; O2SAT 93–99; BMI 36.9
[2023-12-16] MEDS: Lactated Ringers 1,000 ML 100 ML IVCONT (06:35)
[2023-12-16] MEDS: Albuterol Sulfate (0.083%) 2.5 MG/3 ML VIAL.NEB INHALE (06:43)
--- NOTE | 2023-12-16 07:32 | MHC.SHP ---
Pre-Procedural Eval Section A - 24 Hr Update-Section A only Date of Service: 12/16/23 The patient is an INPATIENT: No The patient has been examined within 24 hours of the surgical procedure. The History & Physical has been completed within 30 days and I have reviewed it.: Yes Section B - Complete if H&P > 30 days Chief Complaint: Unilateral primary osteoarthritis, left knee Allergies: Allergies Allergy/AdvReac Type Severity Reaction Status Date / Time coconut Allergy Severe Hives Verified 11/27/23 13:11 carbamazepine [From Tegretol] Allergy Intermediate Hives Verified 11/27/23 13:11 cyclobenzaprine Allergy Rash Verified 11/27/23 13:11 [From Flexeril] bupropion [From Wellbutrin] AdvReac Severe Hives Verified 11/27/23 13:11 musle relaxer AdvReac ineffective, Uncoded 11/27/23 13:11 tegretol allergy Plan I have reviewed the history and physical and performed a pertinent physical examination on my patient. No changes have occurred unless specified. Time Spent With Patient Time: Total time managing care of this patient today ____ minutes.
--- NOTE | 2023-12-16 10:13 | PM.OP ---
Brief Operative Note Date of Service: 12/16/23 Pre-op diagnosis: Right knee MMT Post-op diagnosis: same Procedure: Medial meniscectomy and chondroplasty right knee Surgeon: Jeramy Santana MD Anesthesia: GLMA and local Was an Denture Contour Wire Specialist used for this Procedure?: No Estimated blood loss (mL): 10 Tourniquet time (min): 15 IV fluids (mL): 500 Pathology: none sent Condition: stable Disposition: PACU
--- NOTE | 2023-12-18 07:59 | P.OP_ITS ---
Operative Note Operative Note Date of Service: 12/16/23 Narrative: Date of Service: 12/16/23 Pre-op diagnosis: Right knee MMT Post-op diagnosis: same Procedure: Medial meniscectomy and chondroplasty right knee Surgeon: Jeramy Santana MD Anesthesia: GLMA and local Was an Photocopying Equipment Mechanic used for this Procedure?: No Estimated blood loss (mL): 10 Tourniquet time (min): 15 IV fluids (mL): 500 Pathology: none sent Condition: stable Disposition: PACU Procedure in detail: Patient was brought to the operating room placed supine on the arthroscopic table and prepped and draped in standard sterile fashion. A time-out was called to identify proper site proper procedure proper surgeon and IV antibiotics per weight were administered. I began by exsanguinating the limb and insufflating tourniquet to 300 mm Hg. Then made a standard anterolateral stab incision. The knee was insufflated with water and 30 degree arthroscope was placed. There was grade 1 fibrillations of the patella but overall suprapatellar pouch and the gutters were clean. I descended into the medial compartment where I made my medial portal under direct visualization. There was degenerative tear of the posterior horn of the medial meniscus and there were extensive G3 changes of the medial femroal condykle. The root was intact and there was grade 1 changes in the tibial plateau but minimal. I used a combination of biter shaver and cautery to remove unstable portions of the meniscus. Apporximately 30% meniscal volume was removed. Once I was satsfied with this the ACL was examined and found to be intact and the lateral compartment also was without the need for intervention. I then removed all instrumentation and closed the portals with skin glue. 25 mL of 2% Marcaine with epinephrine was injected into the joint and the surrounding soft tissues. Patient was then placed in sterile dressing extubated brought recovery room stable condition. There were no known complications.
== END 2023-12-16 10:25 | disposition home or self-care (01) ==
PROVIDERS: PCP Nurse Practitioner Family; Visit Provider Orthopaedic Surgery
PROC: (CPT 29870; principal; 2023-12-16 07:30)
DX: S83.242A Other tear of medial meniscus, current injury, left knee, initial encounter (principal); M17.12 Unilateral primary osteoarthritis, left knee; G89.29 Other chronic pain; M23.52 Chronic instability of knee, left knee; X58.XXXA Exposure to other specified factors, initial encounter; Y93.9 Activity, unspecified; Y92.9 Unspecified place or not applicable; Y99.8 Other external cause status; F11.20 Opioid dependence, uncomplicated; Z88.8 Allergy status to other drugs, medicaments and biological substances; Z79.899 Other long term (current) drug therapy; Z98.890 Other specified postprocedural states; F17.210 Nicotine dependence, cigarettes, uncomplicated
CPT/HCPCS: 29881; J0131; J0171; J0690; J1100; J2250; J2405; J2704; J2795; J3010

== ENCOUNTER → 2023-12-16 06:05 | Outpatient (BNV) | payer OTHER, SELFPAY | PROVIDERS: PCP Nurse Practitioner Family; Visit Provider Orthopaedic Surgery | DX: S83.242A Other tear of medial meniscus, current injury, left knee, initial encounter (principal) | CPT/HCPCS: 29881 ==

== ENCOUNTER 2023-12-24 12:31 | Outpatient (AMB) | payer OTHER, SELFPAY ==
--- NOTE | 2023-12-24 12:33 | A.OFFVIS_ITS ---
Intake Visit Reasons: PO LT knee 12/16/23 NE Intake Note: Ksenia is a 43 year old female who presents today for a post op appointment s/p left knee 12/16/23NE. Patient reports that she is still having pain. She feels like her knee is still giving out on her when she is walking. Allergies coconut Allergy (Severe, Verified 12/24/23 12:42) Hives carbamazepine [From Tegretol] Allergy (Intermediate, Verified 12/24/23 12:42) Hives cyclobenzaprine [From Flexeril] Allergy (Verified 12/24/23 12:42) Rash bupropion [From Wellbutrin] Adverse Reaction (Severe, Verified 12/24/23 12:42) Hives musle relaxer Adverse Reaction (Uncoded 11/27/23 13:11) ineffective, tegretol allergy HPI HPI PO LT knee 12/16/23 NE: Details: 43-year-old female who presents in the office today 8 days status post left knee medial meniscectomy and chondroplasty, which was performed on 12/16/[address] Santana. ? ? While in the office today, the patient reports she is still having pain, and she feels like her knee is going to give out when ambulating. ? [facility] Surgical History Hx of hysterectomy Hx of hand surgery Hx of arthroscopy of left knee Social History Household Members: None Housing: Homeless Do you presently have visiting nurse or other home services: No Unable to assess alcohol history related to: Unknown Comment: All counts correct Patient Tobacco Use Status: Current everyday Tobacco user Tobacco use type: Cigarette Cigarette Packs Per Day: 0.5 Cigarettes Per Day: 20 e-Cigarette/Vaping Use: Never Used Second Hand Smoke Exposure: Yes Substance Use Type: Crack/Cocaine, Heroin, Marijuana and Caffiene service: No Current occupational status: employed 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 Incision sites are clean, dry, and intact. Sutures are intact. No surrounding erythema or drainage. No signs of infection. ROM is 10-90 degrees. NVI.? Assessment & Plan Assessment & Plan (1) S/P left knee arthroscopy: Onset Date: ~12/16/23 Comment: Left knee medial meniscectomy and chondroplasty; NE Code(s): Z98.890 - Other specified postprocedural states Category: Surgical Plan Ms. Heath is a 43-year-old female who presents in the office today 8 days status post left knee medial meniscectomy and chondroplasty, which was performed on 12/16/[address] Santana. ? ? While in the office today, the patient reports she is still having pain, and she feels like her knee is going to give out when ambulating.? ? The patient will be referred to physical therapy as soon as possible for ROM and quad strengthening. The incision site was cleaned and new steri-stripes were applied over both incision sites. 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 ? Orders: Orders PT Evaluation and Treatment Today Z98.890 - Other specified postprocedural states Patient Instructions: Scribed by Elida Caraballo medical communication specialist, for Cindy Horton PA-C on 12/24/2023 at 12:39 pm, EST.? Coding Level of Care Code Global (36511) Diagnoses S/P left knee arthroscopy Z98.890
== END 2023-12-24 13:07 | disposition home or self-care (01) ==
PROVIDERS: PCP Nurse Practitioner Family; Visit Provider Physician Assistant
DX: Z98.890 Other specified postprocedural states (principal)
CPT/HCPCS: 99024

== ENCOUNTER → 2023-12-24 12:31 | Outpatient (BNVA) | payer OTHER, SELFPAY | PROVIDERS: PCP Nurse Practitioner Family; Visit Provider Physician Assistant | DX: M25.362 Other instability, left knee (principal); Z47.89 Encounter for other orthopedic aftercare; Z98.890 Other specified postprocedural states | CPT/HCPCS: 99212 ==

== ENCOUNTER 2023-12-29 14:23 | Emergency (ER) | payer OTHER, SELFPAY ==
[2023-12-29 15:16] VITALS: BP 138/85; PULSE 86; RESP 18; TEMP 36.1; O2SAT 93; BMI 37.1
--- NOTE | 2023-12-29 15:20 | ED_ITS ---
HPI - General Adult General Chief complaint: General Medical Stated complaint: Allergic reaction? Time Seen by Provider: 12/29/23 16:02 Source: patient Mode of arrival: ambulatory Limitations: no limitations History of Present Illness ED Provider: laurent LANDEROS narrative: Patient is a 43-year-old female presenting to emergency department with complaint of cyclical rash which has been occurring for the past 5 months. She states that the rash typically begins 3-4 days before onset of her period then resolves spontaneously after a few days of menses. She is expecting her period to start in the next 1-2 days. She has used [id number] Benadryl with little relief. Reports rash began on her hands and arms, tops of feet and lower legs. States each month the rash progresses to more surface area. Called her OBGYN but can not be seen until March. Denies any oral lesions, any rash to palms or soles. Denies any difficulty breathing or shortness of breath. Denies any swelling to lips or tongue. Denies new medications or recent medication changes. MD complaint: rash Onset (ago): month(s) Location: upper extremity and lower extremity Associated symptoms: denies other symptoms Treatments prior to arrival: other Related Data Home Medications ?Medication ?Instructions ?Recorded ?Confirmed methadone 10 mg/mL oral concentrate 160 mg PO DAILY 11/27/23 12/16/23 Previous Rx's ?Medication ?Instructions ?Recorded duloxetine 60 mg capsule,delayed 60 mg PO DAILY 30 days #30 caps 07/17/21 release quetiapine 100 mg tablet 150 mg (1.5 x 100 mg) PO BEDTIME 07/17/21 PRN insomnia 30 days #30 tabs lidocaine 5 % topical patch 1 patch topical DAILY #15 ea 05/17/23 (Lidoderm) hydrocodone 5 mg-acetaminophen 325 1 tab PO Q8H PRN pain (scale score 12/16/23 mg tablet 4-6) #21 tabs prednisone 20 mg tablet See Rx Instructions .Route 12/29/23 .COMPLEX #18 tabs Allergies Allergy/AdvReac Type Severity Reaction Status Date / Time coconut Allergy Severe Hives Verified 12/29/23 15:16 carbamazepine [From Tegretol] Allergy Intermediate Hives Verified 12/29/23 15:16 cyclobenzaprine Allergy Rash Verified 12/29/23 15:16 [From Flexeril] bupropion [From Wellbutrin] AdvReac Severe Hives Verified 12/29/23 15:16 musle relaxer AdvReac ineffective, Uncoded 11/27/23 13:11 tegretol allergy Review of Systems 2 Review of Systems: As per HPI. Yes all other systems are reviewed and are negative Constitutional: Constitutional: Reports as per HPI PMFSH Past Medical History Surgical History Hx of hysterectomy Hx of hand surgery Hx of arthroscopy of left knee Social History Social History Household Members: None Housing: Homeless Do you presently have visiting nurse or other home services: No Unable to assess alcohol history related to: Unknown Comment: All counts correct Patient Tobacco Use Status: Current everyday Tobacco user Tobacco use type: Cigarette Cigarette Packs Per Day: 0.5 Cigarettes Per Day: 20 e-Cigarette/Vaping Use: Never Used Second Hand Smoke Exposure: Yes Substance Use Type: Crack/Cocaine, Heroin, Marijuana and Caffiene Advance Directives: No Advance Directives Information Provided: No Do you have a plan to hurt others: No Plan service: No Current occupational status: employed 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 Blood pressure normal. Heart rate normal. Respiratory rate normal. Temperature normal. Oxygen saturation normal. Const General: cooperative, healthy appearing and no acute distress Orientation/consciousness: oriented to person, oriented to place, oriented to time and patient oriented x3 Limitations: no limitations HENMT Head: Yes normocephalic and Yes atraumatic Ears: external ears normal General nose exam: Normal external nose present Face and sinus: Yes face symmetric Mouth: Normal oral and palatal mucosa present, lip normal, tongue normal, oropharynx normal and moist mucous membranes Throat: Yes uvula midline and No uvular edema Eyes Pupils: Equal, round and reactive pupils present Neck Neck: Yes normal visual inspection and Yes supple Resp Effort & Inspection: normal respiratory effort and able to speak in complete sentences Auscultation: clear to auscultation bilaterally Cardio Rate: regular rate Rhythm: regular rhythm Heart sounds: S1 normal heart sound present and S2 normal heart sound present GI Palpation (GI): Soft to palpation and nontender Auscultation: normoactive bowel sounds General: Yes no CVA tenderness Back/Spine/Pelvis Back: no CVA tenderness Skin General skin exam: elasticity normal and turgor normal Rashes: rashes noted urticaria bilateral multiple locations Neuro General: oriented to person, oriented to place, oriented to time, patient oriented x3, moves all extremities, no focal motor deficits and CN's II-XI intact bilaterally Cranial nerves: Yes Equal, round and reactive pupils present Cognition (Neuro): normal cognition Extrem General: Yes full ROM, Yes no pedal edema and Yes no calf tenderness Psych Mental Status: mental status grossly normal Affect: normal affect Thought process: Normal thought process present Course Course Course Narrative: This is a Rapid Medical Examination (RME) performed by Chace Bolivar PA-C in triage. Full HPI, ROS, assessment and treatment plan per primary provider in the Main ED. 43 yo female here for eval of diffuse body rash x5 mo. she believes she is allergic to her menstrual period as this correlates to when she has her menses. taking benadryl w/o relief, last dose 6 hrs ago. no new lotions/soaps/detergents. no known tick or insect bites. + patient incessantly itching. hives noted to bilatearl UEs, spares mucous membranes, palms/soles. no sloughing. no target lesions. nondermatomal pattern. Plan: labs Medical Decision Making Medical Decision Making MDM Narrative: Patient is a 43-year-old female presenting to emergency department with complaint of cyclical rash which has been occurring for the past 5 months. On exam patient is awake, A+Ox3, VS WNL, afebrile, normal neurological exam without focal deficits, physical exam findings as above. Given reported symptoms and physical exam findings, initial differential includes progestogen hypersensitivity, chronic idiopathic urticaria, estrogen hypersensitivity. Do not suspect TEN/SJS, DRESS, TTP/DIC, necrotizing fasciitis, meningococcemia, SSSS, TSS, anaphylaxis. Labs grossly within normal limits. Advised patient to stop using Benadryl and switch to a second-generation antihistamine such as cetirizine, add famotidine, will prescribe short tapering course of prednisone. Discussed with patient that she should avoid itching or scratching at the areas to prevent secondary infection. Follow-up with PCP. Return precautions discussed. Patient verbalized understanding of and agreement with plan. Differential Diagnosis Differential Diagnoses: The differential diagnosis associated with the presentation includes As per [facility] Lab Data [facility] Lab Attestation statement: I reviewed the patient's lab results. as per [facility] 12/29/23 16:11 12/29/23 16:11 Labs: Lab Results 12/29/23 Range/Units 16:11 WBC 11.7 H (4.8-10.8) X10*3/uL RBC 4.57 (4.20-5.50) X10*6/uL Hgb 13.7 (12.0-16.0) g/dl Hct 40.6 (37.0-47.0) % MCV 88.8 (80.0-98.0) fL MCH 30.0 (27.0-33.0) pg MCHC 33.7 (31.0-35.0) g/dl RDW 14.3 (11.0-16.0) % Plt Count 260 (160-400) X10*3/uL MPV 8.7 L (9.4-12.3) fL Immature Gran % (Auto) 0.3 (0.0-0.4) % Neut % (Auto) 66.7 (45-73) % Lymph % (Auto) 23.3 (20-40) % [place] % (Auto) 6.5 (2-11) % Eos % (Auto) 2.9 (0-4) % Baso % (Auto) 0.3 (0-2) % Lymph # (Auto) 2.7 (1.2-4.9) X10*3/uL [place] # (Auto) 0.8 (0.1-1.2) X10*3/uL Eos # (Auto) 0.3 (0.0-0.4) X10*3/uL Baso # (Auto) 0.0 (0.0-0.2) X10*3/uL Abs Immat Gran (auto) 0.04 H (0.00-0.03) X10*3/uL Absolute Neuts (auto) 7.8 (2.0-8.3) x10*3/uL Absolute Nucleated RBC 0.000 (0.0-0.012) X10*3/uL Nucleated RBC % (auto) 0.0 (0.0-0.2) /100WBC Sodium 139 (135-145) mmol/L Potassium 4.2 (3.3-5.1) mmol/L Chloride 103 (96-108) mmol/L Carbon Dioxide 27 (22-29) mmol/L Anion Gap 13 (12-20) BUN 9 (9-16) mg/dL Creatinine 0.94 (0.5-1.4) mg/dL Estim Creat Clear Calc 99.6 Estimated GFR > 60 Random Glucose 115 (60-115) mg/dL Calcium 10.2 (8.4-10.2) mg/dL Magnesium 2.1 (1.6-2.6) mg/dL Total Bilirubin 0.5 (0.0-1.0) mg/dL AST 21 (5-31) U/L ALT 17 (0-31) U/L Alkaline Phosphatase 63 (39-117) U/L Total Protein 8.3 H (6.5-8.0) g/dL Albumin 4.2 (3.5-5.0) g/dL Beta HCG, Quant < 2 mIU/mL External Record Review External record reviewed: Inpatient record, Office record and Outpatient record Prescription Management I considered prescription management with: Other Discharge Plan Discharge Clinical Impression: Urticaria of unknown origin Patient Disposition: Home, Self-Care Instructions: Urticaria (ED) Additional Instructions: You were evaluated in the emergency department today for hives. You are being prescribed a tapering dose of steroids to decrease inflammation, take the full course as prescribed even if your symptoms improve. We also recommend that you discontinue use of Benadryl and begin using cetirizine (Zyrtec). Start by taking the Zyrtec 10mg once daily, then increase to twice daily if needed, if still symptomatic you can take two in the morning and 1 at night, if still symptomatic you can take 2 in the morning and 2 at night. Do not take more than 4 tabs in a 24 hour period. We also recommend that you begin taking famotidine 20 mg daily, this medication is [id number] commonly labeled as Pepcid. We recommend applying an unscented lotion such as Eucerin or Vanicream as needed. Try to avoid itching or scratching the affected areas as this can cause a secondary infection. Use lukewarm water to shower, avoid very hot or very cold water. Follow up with your FOREIGN BANKNOTE TELLER TRADER as soon as possible. Return to the emergency department if you develop difficulty breathing or shortness of breath, swelling to lips, tongue, fever, rash inside your mouth or to your palms/soles or any other concerning symptoms. Prescriptions: New prednisone 20 mg tablet See Rx Instructions .ROUTE .COMPLEX Qty: 18 0RF Rx Instructions: 60mg (3 tabs) x 3 days, 40mg (2 tabs) x 3 days, 20mg (1 tab) x 3 days No Action duloxetine 60 mg Capsule,Delayed Release(Dr/Ec) 60 mg PO DAILY 30 Days Qty: 30 0RF quetiapine 100 mg tablet 150 mg PO BEDTIME PRN (Reason: insomnia) 30 Days Qty: 30 0RF hydrocodone-acetaminophen 5-325 mg tablet 1 tab PO Q8H PRN (Reason: pain (scale score 4-6)) Qty: 21 0RF Rx Instructions: Partial Fill upon patient request. lidocaine [Lidoderm] 5 % adhesive patch,medicated 1 patch topical DAILY Qty: 15 0RF Rx Instructions: leave on most painful area for up to 12 hrs methadone 10 mg/mL concentrate 160 mg PO DAILY Rx Instructions: 95 qam 70 qhs Print Language: Portuguese
[2023-12-29 16:16] LABS: MANUAL DIFF FLAG NO
[2023-12-29 16:20] LABS: Basophils Percent Auto 0.3 % (0-2); Eosinophils Absolute Auto 0.3 X10*3/uL (0.0-0.4); Eosinophils Percent Auto 2.9 % (0-4); Hematocrit 40.6 % (37.0-47.0); Hemoglobin 13.7 g/dl (12.0-16.0); Imm Gran Abs Auto 0.04 X10*3/uL (0.00-0.03); Imm Gran Pct Auto 0.3 % (0.0-0.4); Lymphocytes Absolute Auto 2.7 X10*3/uL (1.2-4.9); Lymphocytes Percent Auto 23.3 % (20-40); Mean Corpuscular HGB Conc 33.7 g/dl (31.0-35.0); Mean Corpuscular Volume 88.8 fL (80.0-98.0); Mean Platelet Volume 8.7 fL (9.4-12.3); Monocytes Absolute Auto 0.8 X10*3/uL (0.1-1.2); Monocytes Percent Auto 6.5 % (2-11); Neutrophils Absolute Auto 7.8 x10*3/uL (2.0-8.3); Neutrophils Percent Auto 66.7 % (45-73); Platelet Count 260 X10*3/uL (160-400); Red Blood Count 4.57 X10*6/uL (4.20-5.50); Red Cell Distribution Width 14.3 % (11.0-16.0); White Blood Count 11.7 X10*3/uL (4.8-10.8)
[2023-12-29 16:32] VITALS: BP 122/66; PULSE 74; RESP 18; TEMP 36.7; O2SAT 93
[2023-12-29 16:42] LABS: Alanine Aminotransferase 17 U/L (0-31); Albumin Level 4.2 g/dL (3.5-5.0); Alkaline Phosphatase 63 U/L (39-117); Anion Gap 13 (12-20); Aspartate Amino Transferase 21 U/L (5-31); Bilirubin Total 0.5 mg/dL (0.0-1.0); Blood Urea Nitrogen 9 mg/dL (9-16); Calcium 10.2 mg/dL (8.4-10.2); Carbon Dioxide 27 mmol/L (22-29); Chloride 103 mmol/L (96-108); Creatinine Clr Calc Pharmacy 99.6; Estimated Glomerular Filt Rate > 60; Glucose Random 115 mg/dL (60-115); HCG Quantitative < 2 mIU/mL; Magnesium 2.1 mg/dL (1.6-2.6); Potassium 4.2 mmol/L (3.3-5.1); Sodium 139 mmol/L (135-145); Total Protein 8.3 g/dL (6.5-8.0)
[2023-12-29] MEDS: Loratadine 10 MG TABLET PO (17:48)
[2023-12-29] MEDS: predniSONE 20 MG TABLET 60 MG PO (17:48)
[2023-12-29] MEDS: Famotidine 20 MG TABLET PO (17:48)
[2023-12-29 18:05] VITALS: BP 122/66; PULSE 74; RESP 18; TEMP 36.7; O2SAT 93
== END 2023-12-29 18:10 | disposition home or self-care (01) ==
PROVIDERS: Physician Assistant Medical; Emergency Provider Internal Medicine; PCP Nurse Practitioner Family
DX: L50.9 Urticaria, unspecified (principal); R21 Rash and other nonspecific skin eruption
CPT/HCPCS: 36415; 80053; 83735; 84702; 85025; 99283

== ENCOUNTER 2024-02-04 13:14 | Outpatient (AMB) | payer OTHER, SELFPAY ==
--- NOTE | 2024-02-04 13:16 | A.OFFVIS_ITS ---
Vital Signs 02/04/24 13:23 Height 5 ft 8 in Weight 244 lb BMI 37.1 Intake Visit Reasons: PO LT knee 12/16/23 NE Intake Note: Ksenia a 43 year old female who presents today for a post operative visit s/p left knee on 12/16/23 NE. Patient reports having intermittent redness and swelling at incision site. States pain is inside her knee at the incision site near the medial aspect of knee. Denies any drainage. Allergies coconut Allergy (Severe, Verified 02/04/24 13:23) Hives carbamazepine [From Tegretol] Allergy (Intermediate, Verified 02/04/24 13:23) Hives cyclobenzaprine [From Flexeril] Allergy (Verified 02/04/24 13:23) Rash bupropion [From Wellbutrin] Adverse Reaction (Severe, Verified 02/04/24 13:23) Hives musle relaxer Adverse Reaction (Uncoded 02/04/24 13:23) ineffective, tegretol allergy HPI HPI PO LT knee 12/16/23 NE: Details: 43-year-old female who presents in the office today 6 weeks status post left knee medial meniscectomy and chondroplasty, which was performed on 12/16/[address] Santana. I last saw the patient in the office on 12/24/23 when she was referred to PT to work on ROM and quad strengthening. She was to remain out of work until her follow-up.? ? While in the office today, the patient reports intermittent erythema and edema at the medial incision site. She also reports pain in this area. She denies drainage. ? PFSH Surgical History Hx of hysterectomy Hx of hand surgery Hx of arthroscopy of left knee Social History Household Members: None Housing: Homeless Do you presently have visiting nurse or other home services: No Unable to assess alcohol history related to: Unknown Comment: All counts correct Patient Tobacco Use Status: Current everyday Tobacco user Tobacco use type: Cigarette Cigarette Packs Per Day: 0.5 Cigarettes Per Day: 20 e-Cigarette/Vaping Use: Never Used Second Hand Smoke Exposure: Yes Substance Use Type: Crack/Cocaine, Heroin, Marijuana and Caffiene service: No Current occupational status: employed 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 Incision sites are clean, dry, and intact. Sutures are intact. No surrounding erythema or drainage. No signs of infection. ROM is 0-90 degrees. NVI.? Assessment & Plan Assessment & Plan (1) S/P left knee arthroscopy: Onset Date: ~12/16/23 Comment: Left knee medial meniscectomy and chondroplasty; NE Code(s): Z98.890 - Other specified postprocedural states Category: Surgical Plan Ms. Heath is a 43-year-old female who presents in the office today 6 weeks status post left knee medial meniscectomy and chondroplasty, which was performed on 12/16/[address] Santana. I last saw the patient in the office on 12/24/23 when she was referred to PT to work on ROM and quad strengthening. She was to remain out of work until her follow-up.? ? While in the office today, the patient reports intermittent erythema and edema at the medial incision site. She also reports pain in this area. She denies drainage.? ? At the patient?s last appointment, she was referred to PT. However, due to extenuating circumstances regarding transportation and family matters, she was unable to attend. A new order for her to attend PT here at the hospital was made in the office today. I explained to her that the hospital will arrange and pay for transportation at no cost to her if she continues to have issues with attendance. She was given an out of work note until her follow-up.? ? She also reported the medial incision site has extreme erythema, become hot to touch, and has edema. She has drawn an outline roughly the size of a half dollar around the incision site. Although on exam there are no signs of infection the patient reports she has had infections in the past that have presented this way, therefore, out of an abundance of caution I sent a prescription for sulfamethoxazole-trimethoprim ?800-160 mg PO BID for 5 days to the pharmacy. She was educated on signs of infection, which are as follows but not limited to erythema, edema, drainage, or warmth. Ifshe is to experience any of these symptoms, she must contact the office immediately or present to the ED. Follow- up will be in six weeks, or sooner if needed. ? Orders: Orders PT Evaluation and Treatment Today Z98.890 - Other specified postprocedural states Medications: New sulfamethoxazole-trimethoprim 800-160 mg (Bactrim DS) 1 tab PO BID 10 tabs 0RF 5 days Patient Instructions: Scribed by Elida Caraballo biomedical equipment support specialist, for Cindy Horton PA-C on 02/04/2024 at 1:25 pm, EST.? Coding Level of Care Code Global (74997) Diagnoses S/P left knee arthroscopy Z98.890
[2024-02-04 13:23] VITALS: BMI 37.1
== END 2024-02-04 13:39 | disposition home or self-care (01) ==
PROVIDERS: PCP Nurse Practitioner Family; Visit Provider Physician Assistant
DX: Z98.890 Other specified postprocedural states (principal)
CPT/HCPCS: 99024

== ENCOUNTER → 2024-02-04 13:14 | Outpatient (BNVA) | payer OTHER, SELFPAY | PROVIDERS: PCP Nurse Practitioner Family; Visit Provider Physician Assistant | DX: Z98.890 Other specified postprocedural states (principal); Z59.01 Sheltered homelessness | CPT/HCPCS: 99212 ==

== ENCOUNTER 2024-02-29 13:00 | Outpatient (RCR) | payer OTHER, SELFPAY ==
--- NOTE | 2024-03-31 11:37 | MHC.PT.DC ---
[facility] [place] Office [place] Office [place] Office [address] Pamela Quesada [address] [phone] F: [phone] F: [phone] F: [phone] F: [phone] Physical Therapy Discharge Report Diagnosis: S/P MENISECTOMY Date of Surgery: 12/16/23 Date of Evaluation: 02/26/24 Date of Discharge: 03/31/24 Treatments to Date: 2 Cancellations to Date: 0 No Shows to Date: 1 Discharge Status: Visit Non-compliance Discharge Summary: Pt attended eval and one session of PT. No showed for last scheduled visit, did not make further appointments and has not been seen in office for > 1 month. We will DC her chart for non-compliance. Electronically signed by: La Nena Stewart PT DPT Please sign and return to therapist. Thank you for your referral.
== END 2024-03-31 11:37 | disposition home or self-care (01) ==
LOC: HO.PT 13:00
PROVIDERS: PCP Nurse Practitioner Family; Visit Provider Physician Assistant
DX: Z98.890 Other specified postprocedural states (principal)
CPT/HCPCS: 97110; 97161

== ENCOUNTER 2024-03-17 12:43 | Outpatient (AMB) | payer OTHER, SELFPAY ==
--- NOTE | 2024-03-17 12:56 | MHC.OFFVIS ---
Intake Visit Reasons: OV - LT knee 12/16/23 NE Intake Note: Ksenia a 43 year old female who presents today for a post operative visit s/p left knee on 12/16/23 NE. Patient reports she is still feeling her knee giving out. She has been going to PT, however recently she has been able to go due to a in the family. Patient mentions that she has been waking up to a lot of pain and swelling. Allergies coconut Allergy (Severe, Verified 03/17/24 13:00) Hives carbamazepine [From Tegretol] Allergy (Intermediate, Verified 03/17/24 13:00) Hives cyclobenzaprine [From Flexeril] Allergy (Verified 03/17/24 13:00) Rash bupropion [From Wellbutrin] Adverse Reaction (Severe, Verified 03/17/24 13:00) Hives musle relaxer Adverse Reaction (Uncoded 02/04/24 13:23) ineffective, tegretol allergy HPI HPI OV - LT knee 12/16/23 NE: Details: 43-year-old dominant female who presents in the office today 3 months status post left knee medial meniscectomy and chondroplasty, which was performed on 12/16/[address] Santana. I last saw the patient in the office on 02/04/24 when a new order was placed for physical therapy. She was having extreme erythema, edema and hot to touch at the medial incision site. Therefore, she was prescribed sulfamethoxazole-trimethoprim 800-160 mg PO BID for 5 days to prevent any infection. While in the office today, the patient reports she still experiences left knee pain and also continues to have episodes of left knee giving out. She also reports difficulty sleeping and waking up multiple times at night due to pain and edema in the left knee. She mentions attending physical therapy; however, she missed a few sessions because of a in the family. [facility] Surgical History Hx of hysterectomy Hx of hand surgery Hx of arthroscopy of left knee Social History Household Members: None Housing: Homeless Do you presently have visiting nurse or other home services: No Unable to assess alcohol history related to: Unknown Comment: All counts correct Patient Tobacco Use Status: Current everyday Tobacco user Tobacco use type: Cigarette Cigarette Packs Per Day: 0.5 Cigarettes Per Day: 20 e-Cigarette/Vaping Use: Never Used Second Hand Smoke Exposure: Yes Substance Use Type: Crack/Cocaine, Heroin, Marijuana and Caffiene service: No Current occupational status: employed 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 No ecchymosis, erythema, or joint effusion. No signs of infection. Normal to inspection. ROM is 0-110 degrees. NVI. Assessment & Plan Assessment & Plan (1) S/P left knee arthroscopy: Onset Date: ~12/16/23 Comment: Left knee medial meniscectomy and chondroplasty; NE Code(s): Z98.890 - Other specified postprocedural states Category: Surgical Plan Ms. Heath is a 43-year-old dominant female who presents in the office today 3 months status post left knee medial meniscectomy and chondroplasty, which was performed on 12/16/[address] Santana. I last saw the patient in the office on 02/04/24 when a new order was placed for physical therapy. She was having extreme erythema, edema and hot to touch at the medial incision site. Therefore, she was prescribed sulfamethoxazole-trimethoprim 800-160 mg PO BID for 5 days to prevent any infection. While in the office today, the patient reports she still experiences left knee pain and also continues to have episodes of left knee giving out. She also reports difficulty sleeping and waking up multiple times at night due to pain and edema in the left knee. She mentions attending physical therapy; however, she missed a few sessions because of a in the family. The patient is unsatisfied with the function of her left knee postoperatively. She continues to have episodes of left knee giving out. She reports edema roughly the size of a softball over the anterior tibial just distal to the left knee. She will continue to attend physical therapy. However, she would like to have a follow-up appointment with Dr. Santana to discuss her concerns in detail and for further evaluation if any additional intervention is needed in her recovery. Follow-up will be in 1-[address] Santana, or sooner if needed. Patient Instructions: Scribed by Rosi Winston biomedical engineer, for Cindy Horton PA-C on 03/17/24 at 01:10 pm EST. Coding Level of Care Code Est Pt Level 3 (30145) Diagnoses S/P left knee arthroscopy Z98.890
== END 2024-03-17 13:14 | disposition home or self-care (01) ==
PROVIDERS: PCP Nurse Practitioner Family; Visit Provider Physician Assistant
DX: S83.242D Other tear of medial meniscus, current injury, left knee, subsequent encounter (principal)
CPT/HCPCS: 99213

== ENCOUNTER → 2024-03-17 12:43 | Outpatient (BNVA) | payer OTHER, SELFPAY | PROVIDERS: PCP Nurse Practitioner Family; Visit Provider Physician Assistant | DX: M25.562 Pain in left knee (principal); M25.362 Other instability, left knee; M25.462 Effusion, left knee; Z98.890 Other specified postprocedural states | CPT/HCPCS: 99212 ==

== ENCOUNTER 2024-04-04 14:00 | Outpatient (AMB) | payer OTHER, SELFPAY ==
--- NOTE | 2024-04-04 14:04 | A.OFFVIS_ITS ---
Vital Signs 04/04/24 14:05 Height 5 ft 8 in Weight 244 lb BMI 37.1 Intake Visit Reasons: OV - LT knee 12/16/23 NE Intake Note: Ksenia a 43 year old female who presents today for a post operative visit s/p left knee medial meniscectomy and chondroplasty on 12/16/23 NE. At her first post operative appointment patient expressed that she is unsatisfied with her knee postoperatively, as she reports that she is having increased and constant pain that is worse at bed time. Pain is felt in the posterior aspect of the knee as well as behind the patella. She has an increase of swelling of the lower extremity which she was prescribed antibiotics by [facility] for. Tingling is felt in the posterior aspect of the knee. Allergies coconut Allergy (Severe, Verified 03/17/24 13:00) Hives carbamazepine [From Tegretol] Allergy (Intermediate, Verified 03/17/24 13:00) Hives cyclobenzaprine [From Flexeril] Allergy (Verified 03/17/24 13:00) Rash progesterone Allergy (Verified 04/04/24 14:10) Hives bupropion [From Wellbutrin] Adverse Reaction (Severe, Verified 03/17/24 13:00) Hives musle relaxer Adverse Reaction (Uncoded 02/04/24 13:23) ineffective, tegretol allergy HPI HPI OV - LT knee 12/16/23 NE: Details: Ksenia a 43 year old female who presents today for a post operative visit s/p left knee medial meniscectomy and chondroplasty on 12/16/23 NE. At her first post operative appointment patient expressed that she is unsatisfied with her knee postoperatively as she continues to have episodes of the knee giving out, continued pain and swelling. Intraoperatively our findings were consistent with osteoarthritis. [facility] Surgical History Hx of hysterectomy Hx of hand surgery Hx of arthroscopy of left knee Social History Household Members: None Housing: Homeless Do you presently have visiting nurse or other home services: No Unable to assess alcohol history related to: Unknown Comment: All counts correct Patient Tobacco Use Status: Current everyday Tobacco user Tobacco use type: Cigarette Cigarette Packs Per Day: 0.5 Cigarettes Per Day: 20 e-Cigarette/Vaping Use: Never Used Second Hand Smoke Exposure: Yes Substance Use Type: Crack/Cocaine, Heroin, Marijuana and Caffiene service: No Current occupational status: employed 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 Her left quadriceps is functioning well but is weak compared to her right. Assessment & Plan Assessment & Plan (1) S/P left knee arthroscopy: Onset Date: ~12/16/23 Comment: Left knee medial meniscectomy and chondroplasty; NE Code(s): Z98.890 - Other specified postprocedural states Category: Surgical Plan: 43-year-old woman status post left knee arthroscopy with intraoperative findings of knee osteoarthritis. She is improving but slowly. I recommend continue physical therapy working on quad functioning. Continue NSAIDs. She may follow up as needed. We reviewed this together and I explained the natural history of moderate osteoarthritis. She will let me know if she needs anything in the future. (2) Osteoarthritis of left knee: Code(s): M17.12 - Unilateral primary osteoarthritis, left knee Category: Medical Qualifiers: Osteoarthritis type: primary Qualified Code(s): M17.12 - Unilateral primary osteoarthritis, left knee Plan: Coding Level of Care Code Est Pt Level 3 (91365) Diagnoses S/P left knee arthroscopy Z98.890 Primary osteoarthritis of left knee M17.12 Osteoarthritis type: primary
[2024-04-04 14:05] VITALS: BMI 37.1
== END 2024-04-04 14:21 | disposition home or self-care (01) ==
PROVIDERS: PCP Nurse Practitioner Family; Visit Provider Orthopaedic Surgery
DX: M17.12 Unilateral primary osteoarthritis, left knee (principal); S83.242D Other tear of medial meniscus, current injury, left knee, subsequent encounter
CPT/HCPCS: 99213

== ENCOUNTER → 2024-04-04 14:00 | Outpatient (BNVA) | payer OTHER, SELFPAY | PROVIDERS: PCP Nurse Practitioner Family; Visit Provider Orthopaedic Surgery | DX: M17.12 Unilateral primary osteoarthritis, left knee (principal); Z98.890 Other specified postprocedural states | CPT/HCPCS: 99212 ==

== ENCOUNTER 2024-04-14 16:18 | Emergency (ER) | payer OTHER, SELFPAY ==
--- NOTE | ~2024-04-14 | XR_ITS ---
EXAMINATION: XR CHEST CLINICAL INFORMATION: Pneumonia COMPARISON: None available. TECHNIQUE: Frontal view of the chest was obtained. FINDINGS: The heart and pulmonary vessels appear normal. There is bronchial thickening present. There is subtle increase in interstitial markings with some reticular nodules. No consolidations with air bronchograms seen. No pleural effusions. XR/XR chest 1V IMPRESSION: Bronchial thickening with subtle increase in interstitial markings and reticular nodules. Findings may be secondary to bronchitis or viral pneumonia. No focal consolidations. Electronically signed by: Se Gray MD 04/14/2024 07:54 PM EST
[2024-04-14 16:55] VITALS: BP 123/76; PULSE 72; RESP 20; TEMP 36.2; O2SAT 94; BMI 40.6
--- NOTE | 2024-04-14 17:03 | ED_ITS ---
HPI - General Adult General Chief complaint: Upper Respiratory Symptoms Stated complaint: upper resp? Time Seen by Provider: 04/14/24 21:24 Source: patient Limitations: no limitations History of Present Illness ED Provider: Marge Haddad PA-C HPI narrative: 43-year-old female with a history of Tobacco use,depression, PTSD, prior opiate use disorder presents with cough and cold symptoms x2 weeks. Associated cough that is dry and spasm like. denies productive cough, chest pain, shortness of breath, fever. Related Data Home Medications ?Medication ?Instructions ?Recorded ?Confirmed methadone 10 mg/mL oral concentrate 160 mg PO DAILY 11/27/23 12/16/23 gabapentin 300 mg capsule 300 mg PO TID 02/04/24 Previous Rx's ?Medication ?Instructions ?Recorded duloxetine 60 mg capsule,delayed 60 mg PO DAILY 30 days #30 caps 07/17/21 release quetiapine 100 mg tablet 150 mg (1.5 x 100 mg) PO BEDTIME 07/17/21 PRN insomnia 30 days #30 tabs lidocaine 5 % topical patch 1 patch topical DAILY #15 ea 05/17/23 (Lidoderm) prednisone 20 mg tablet See Rx Instructions .Route 12/29/23 .COMPLEX #18 tabs albuterol sulfate 90 mcg/actuation 2 puff inhalation Q4-6H PRN 04/14/24 aerosol inhaler shortness of breath or wheezing #6.7 grams azithromycin 250 mg tablet See Rx Instructions PO .COMPLEX #6 04/14/24 (Zithromax Z-Yair) tabs prednisone 20 mg tablet 40 mg (2 x 20 mg) PO DAILY #10 tabs 04/14/24 Allergies Allergy/AdvReac Type Severity Reaction Status Date / Time coconut Allergy Severe Hives Verified 04/14/24 16:59 carbamazepine [From Tegretol] Allergy Intermediate Hives Verified 04/14/24 16:59 cyclobenzaprine Allergy Rash Verified 04/14/24 16:59 [From Flexeril] progesterone Allergy Hives Verified 04/14/24 16:59 bupropion [From Wellbutrin] AdvReac Severe Hives Verified 04/14/24 16:59 musle relaxer AdvReac ineffective, Uncoded 02/04/24 13:23 tegretol allergy Review of Systems Review of Systems: Yes all other systems are reviewed and are negative Constitutional: Constitutional: Denies fatigue and Denies fever(s) Cardiovascular: Cardiovascular: Denies chest pain and Reports dyspnea Respiratory: Respiratory: Denies chest congestion, Reports cough, Reports dyspnea and Reports wheezing Endocrine: Endocrine: Denies fatigue Allergic/Immunologic: Allergic/Immunologic: Reports wheezing PMFSH Past Medical History Attestation statement: The following information was validated with the patient. Surgical History Hx of hysterectomy Hx of hand surgery Hx of arthroscopy of left knee Social History Social History Household Members: None Housing: Homeless Do you presently have visiting nurse or other home services: No Unable to assess alcohol history related to: Unknown Comment: All counts correct Patient Tobacco Use Status: Current everyday Tobacco user Tobacco use type: Cigarette Cigarette Packs Per Day: 0.5 Cigarettes Per Day: 20 Smoked in Last 30 Days: Yes e-Cigarette/Vaping Use: Never Used Second Hand Smoke Exposure: Yes Substance Use Type: Crack/Cocaine, Heroin, Marijuana and Caffiene Advance Directives: No Advance Directives Information Provided: No Do you have a plan to hurt others: No Plan Patient : No service: No Current occupational status: employed Current occupation: [employer] RE[employer], 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 Sexual orientation: Did not discuss Physical Exam ED Vital Signs: Vital Signs - 24 hr 04/14/24 16:55 04/14/24 18:12 04/14/24 21:15 Temperature 97.1 F 98.2 F Pulse Rate 72 82 78 Respiratory Rate 20 18 16 Blood Pressure 123/76 137/62 Pulse Oximetry 94 94 Oxygen Delivery Method Room Air Room Air 04/14/24 22:31 04/14/24 22:33 Temperature 98.2 F 98.2 F Pulse Rate 78 78 Respiratory Rate 16 16 Blood Pressure 137/62 137/62 Pulse Oximetry 94 94 Oxygen Delivery Method Room Air Room Air BMI result Body Mass Index 40.6 Const Other: Alert well appearing Orientation/consciousness: patient oriented x3 Resp Other: nonlabored respirations, active bronchospasm cough, no wheezing Cardio Other: normal peripheral perfusion Skin Other: warm dry no rash Neuro General: patient oriented x3, no focal motor deficits and CN's II-XI intact bilaterally Psych Other: calm cooperative Course Course Course Narrative: RME: 43-year-old female history of asthma presents to ED for coughing, chest tightness, and wheezing. Positive for wheezing on exam. O2 sat 94% on room air x-ray treatment ordered. SARs strep Medications Administered Discontinued Medications Generic Name Dose Route Start Last Admin Trade Name Gasper PRN Reason Stop Dose Admin Albuterol Sulfate 2.5 mg/ 0 mg 04/14/24 18:07 04/14/24 18:10 Albuterol/Ipratropium 3 ml INHALE 04/14/24 18:08 1 dose ONCE ONE Administration Medical Decision Making Medical Decision Making MDM Narrative: 43-year-old female with a history of Tobacco use,depression, PTSD, prior opiate use disorder presents with cough and cold symptoms x2 weeks. Associated cough that is dry and spasm like. denies productive cough, chest pain, shortness of breath, fever. problem: Tobacco abuse History: Per patient I have considered the following differential diagnoses: Bronchitis, pneumonia, asthma / COPD exacerbation Plan: Patient likely is developing COPD given her ongoing tobacco use, x-ray and viral panel were obtained, no pneumonia viral screen negative. We will treat for bronchitis, she can follow up with primary care. I have independently reviewed the following tests: Labs: Viral panel negative Chest x-ray: XR/XR chest 1V IMPRESSION: Bronchial thickening with subtle increase in interstitial markings and reticular nodules. Findings may be secondary to bronchitis or viral pneumonia. No focal consolidations. Electronically signed by: Se Gray MD 04/14/2024 07:54 PM [facility] Lab Data Labs: Lab Results 04/14/24 Range/Units 18:03 Influenza Type A (PCR) NEGATIVE (Negative) Influenza Type B (PCR) NEGATIVE (Negative) RSV RNA Qual (PCR) NEGATIVE (Negative) SARS-CoV-2 RNA (RT-PCR) NEGATIVE (Negative) S. pyogenes GrpA JOYCE Negative (Negative) Discharge Plan Discharge Clinical Impression: Bronchitis Patient Disposition: Home, Self-Care Instructions: Acute Bronchitis (ED) Additional Instructions: you were screened for COVID, influenza and RSV, the viral panel was negative. The chest x-ray shows that you have bronchitis. See home care instructions. Use the Z-Yair as directed this is an antibiotic. Use the albuterol as directed, this is for your cough and wheezing. Take the steroid as directed, take it in the mornings. Follow up with your primary care provider next week. Prescriptions: New azithromycin [Zithromax Z-Yair] 250 mg tablet See Rx Instructions .ROUTE .COMPLEX Qty: 6 0RF Rx Instructions: For 250 mg dose pack: take 500 mg today (day 1), then 250 mg for 4 days (days 2-5) prednisone 20 mg tablet 40 mg PO DAILY Qty: 10 0RF albuterol sulfate 90 mcg/actuation HFA aerosol inhaler 2 puff inhalation Q4-6H PRN (Reason: shortness of breath or wheezing) Qty: 6.7 0RF No Action duloxetine 60 mg Capsule,Delayed Release(Dr/Ec) 60 mg PO DAILY 30 Days Qty: 30 0RF quetiapine 100 mg tablet 150 mg PO BEDTIME PRN (Reason: insomnia) 30 Days Qty: 30 0RF lidocaine [Lidoderm] 5 % adhesive patch,medicated 1 patch topical DAILY Qty: 15 0RF Rx Instructions: leave on most painful area for up to 12 hrs prednisone 20 mg tablet See Rx Instructions .ROUTE .COMPLEX Qty: 18 0RF Rx Instructions: 60mg (3 tabs) x 3 days, 40mg (2 tabs) x 3 days, 20mg (1 tab) x 3 days gabapentin 300 mg capsule 300 mg PO TID methadone 10 mg/mL concentrate 160 mg PO DAILY Rx Instructions: 95 qam 70 qhs Interventions: ED Discharge Assessment Last Done: 04/14/24 22:33 Discharge Date/Time: 04/14/24 22:33 Print Language: Mongolian
[2024-04-14] MEDS: Albuterol Sulfate 2.5 MG, Albuterol/Iprat 2.5/0.5MG 3 ML 3 ML INHALE (18:10)
[2024-04-14 18:12] VITALS: PULSE 82; RESP 18; O2SAT 92
[2024-04-14 18:32] LABS: IDNOW Serial# 08D9AD1C; Strep A Nucleic Acid Negative (Negative)
[2024-04-14 18:47] LABS: Influenza A PCR NEGATIVE (Negative); Influenza B PCR NEGATIVE (Negative); Resp Syncy Virus RNA Qual PCR NEGATIVE (Negative); SARS COV2 PCR INHOUSE NEGATIVE (Negative)
[2024-04-14 21:15] VITALS: BP 137/62; PULSE 78; RESP 16; TEMP 36.8; O2SAT 94
[2024-04-14 22:31] VITALS: BP 137/62; PULSE 78; RESP 16; TEMP 36.8; O2SAT 94
[2024-04-14 22:33] VITALS: BP 137/62; PULSE 78; RESP 16; TEMP 36.8; O2SAT 94
== END 2024-04-14 22:33 | disposition home or self-care (01) ==
PROVIDERS: Physician Assistant; Emergency Provider Internal Medicine; PCP Nurse Practitioner Family
DX: J40 Bronchitis, not specified as acute or chronic (principal); R05.9 Cough, unspecified; F11.10 Opioid abuse, uncomplicated; Z03.818 Encounter for observation for suspected exposure to other biological agents ruled out; Z79.899 Other long term (current) drug therapy
CPT/HCPCS: 0241U; 71045; 87651; 94640; 99284; 99285

== ENCOUNTER 2024-07-18 14:27 | Outpatient (AMB) | payer OTHER, SELFPAY ==
--- NOTE | 2024-07-18 14:45 | A.OFFVIS_ITS ---
Intake Visit Reasons: OV - Left Knee OA - Continued pain Intake Note: Ksenia is a 43 year old female who presents today for a follow up visit of her left knee s/p left knee medial meniscectomy and chondroplasty on 12/16/23 NE. Patient reports that she did not have any relief with from her surgery. She is still out of work, she is looking for a RTW note for light duty - no lifting over 5 lbs and no prolonged standing. Allergies coconut Allergy (Severe, Verified 04/14/24 16:59) Hives carbamazepine [From Tegretol] Allergy (Intermediate, Verified 04/14/24 16:59) Hives cyclobenzaprine [From Flexeril] Allergy (Verified 04/14/24 16:59) Rash progesterone Allergy (Verified 04/14/24 16:59) Hives bupropion [From Wellbutrin] Adverse Reaction (Severe, Verified 04/14/24 16:59) Hives musle relaxer Adverse Reaction (Uncoded 02/04/24 13:23) ineffective, tegretol allergy HPI HPI OV - Left Knee OA - Continued pain: Details: Ksenia is a 43 year old female who presents today for a follow up visit of her left knee s/p left knee medial meniscectomy and chondroplasty on 12/16/23 NE. Patient reports that she did not have any relief with from her surgery. She is still out of work, she is looking for a RTW note for light duty - no lifting over 5 lbs and no prolonged standing. [facility] Surgical History Hx of hysterectomy Hx of hand surgery Hx of arthroscopy of left knee Social History Household Members: None Housing: Homeless Do you presently have visiting nurse or other home services: No Unable to assess alcohol history related to: Unknown Comment: All counts correct Patient Tobacco Use Status: Current everyday Tobacco user Tobacco use type: Cigarette Cigarette Packs Per Day: 0.5 Cigarettes Per Day: 20 e-Cigarette/Vaping Use: Never Used Second Hand Smoke Exposure: Yes Substance Use Type: Crack/Cocaine, Heroin, Marijuana and Caffiene service: No Current occupational status: employed Current occupation: [employer], 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 Sexual orientation: Did not discuss Physical Exam Extrem Other: 0-120 degree range of motion left knee with trace effusion. Her left quadriceps is functioning well but is weak compared to her right. Assessment & Plan Assessment & Plan (1) Osteoarthritis of left knee: Code(s): M17.12 - Unilateral primary osteoarthritis, left knee Category: Medical Qualifiers: Osteoarthritis type: primary Qualified Code(s): M17.12 - Unilateral primary osteoarthritis, left knee Plan: Thuy is doing well and she may return to work with restrictions. She may follow up as needed. Coding Level of Care Code Est Pt Level 3 (88607) Diagnoses Primary osteoarthritis of left knee M17.12 Osteoarthritis type: primary
--- OUTSIDE RECORDS SUMMARY | 2024-07-18 16:40 | XMS_ITS | Patient Health Record ---
Author Organization [facility] Address [address], [place] [id number] Care Team Providers Care Sharepoint Net Developer Name Role Phone [facility] Primary Care Provider Tatiana gant [facility], [facility] Unavailable [phone] Reason For Referral No Information Plan Of Treatment No Information Insurance Providers Payer Name Payer Address Payer Phone Subscriber Number Group Number Insured Name Patient Relationship to Insured Coverage Start Date Coverage End Date [facility] Be Healthy [address] [place] [address] [id number] Ksenia Heath Self - patient is the insured 2 [place] Medicaid Standard [address] [place] [address] [phone] [id number] Ksenia Heath Self - patient is the insured 2
== END 2024-07-18 16:16 | disposition home or self-care (01) ==
PROVIDERS: PCP Nurse Practitioner Family; Visit Provider Orthopaedic Surgery
DX: M17.12 Unilateral primary osteoarthritis, left knee (principal)
CPT/HCPCS: 99213

== ENCOUNTER → 2024-07-18 14:27 | Outpatient (BNVA) | payer OTHER, SELFPAY | PROVIDERS: PCP Nurse Practitioner Family; Visit Provider Orthopaedic Surgery | DX: M17.12 Unilateral primary osteoarthritis, left knee (principal) | CPT/HCPCS: 99212 ==

== ENCOUNTER 2024-10-21 12:26 | Outpatient (AMB) | payer OTHER, SELFPAY ==
--- NOTE | 2024-10-21 12:28 | A.OFFVIS_ITS ---
Intake Visit Reasons: OV- Left knee pain/swelling Intake Note: Anna is a 43 year old female who presents today for a follow up of her left knee, hx of left knee medial meniscectomy and chondroplasty on 12/16/23. At her last visit she was instructed to return to work [employer]. Patient reports that she is having continued and worsening pain. She explains that the pain is worse than it was prior to surgery. She explains that she did not return to work as she was unable to complete her job due to her pain and symptoms. She is changing career paths and going to school to accommodate this. She is wearing brace that does help her with instability. The knee is giving out on her which is causing falls. She is taking Ibuprofen which provides temporary relief. Allergies coconut Allergy (Severe, Verified 10/21/24 12:32) Hives carbamazepine [From Tegretol] Allergy (Intermediate, Verified 10/21/24 12:32) Hives cyclobenzaprine [From Flexeril] Allergy (Verified 10/21/24 12:32) Rash progesterone Allergy (Verified 10/21/24 12:32) Hives bupropion [From Wellbutrin] Adverse Reaction (Severe, Verified 10/21/24 12:32) Hives musle relaxer Adverse Reaction (Uncoded 10/21/24 12:32) ineffective, tegretol allergy HPI HPI OV- Left knee pain/swelling: Details: Anna is a 43 year old female who presents today for a follow up of her left knee, hx of left knee medial meniscectomy and chondroplasty on 12/16/23. Intra operatively she had extensive G3 changes of the MFC. At her last visit she was instructed to return to work [employer]. Patient reports that she is having continued and worsening pain. She explains that the pain is worse than it was prior to surgery. She explains that she did not return to work as she was unable to complete her job due to her pain and symptoms. She is changing career paths and going to school to accommodate this. She is wearing brace that does help her with instability. The knee is giving out on her which is causing falls. She is taking Ibuprofen which provides temporary relief. [facility] Surgical History Hx of hysterectomy Hx of hand surgery Hx of arthroscopy of left knee Social History Household Members: None Housing: Homeless Do you presently have visiting nurse or other home services: No Unable to assess alcohol history related to: Unknown Comment: All counts correct Patient Tobacco Use Status: Current everyday Tobacco user Tobacco use type: Cigarette Cigarette Packs Per Day: 0.5 Cigarettes Per Day: 20 e-Cigarette/Vaping Use: Never Used Second Hand Smoke Exposure: Yes Substance Use Type: Crack/Cocaine, Heroin, Marijuana and Caffiene service: No Current occupational status: employed 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 Neg Steinmen's. No sharp JLT. Stable to v/v stress. Office Procedures Joint Inj/Aspir; Non-Pain Clin Joint Injection/Drain Details: Injected 1 mL of Decadron and 3 mL 1% lidocaine and 3 mL of 0.25% Marcaine. Site was prepped using aseptic technique. Patient tolerated the procedure well. Shoulders, Hips, Knees, Knee Large Joint Injection : Left Knee Coding Procedure code (CPT) selection complete Assessment & Plan Assessment & Plan (1) Osteoarthritis of left knee: Code(s): M17.12 - Unilateral primary osteoarthritis, left knee Category: Medical Qualifiers: Osteoarthritis type: primary Qualified Code(s): M17.12 - Unilateral primary osteoarthritis, left knee Plan: THis is a 43 yo F with left knee OA that is moderate as per last October. I discussed this with her and reviewed options. She states she is active and that she does not want to do formal PT at this time. She continues on methadone which is a challenge for her. I injected her knee and we can see if that ameliorates her pain. I am not sure there is a perfect solution. My recommendation is fitness and activity modification. Viscosupplementation could be considered in the future. Coding Level of Care Code Est Pt Level 3 (00415) Diagnoses Primary osteoarthritis of left knee M17.12 Osteoarthritis type: primary CPT Codes Shoulders, Hips, Knees, - Knee Large Joint Injection : Left Knee ([id number])
--- OUTSIDE RECORDS SUMMARY | 2024-10-21 12:54 | XMS_ITS | Patient Health Record ---
Author Organization [facility] Address [address], [place] [id number] Care Team Providers Care Receiving Dock Checker Name Role Phone [facility] Primary Care Provider Tatiana gant [facility], [facility] Unavailable [phone] Reason For Referral No Information Plan Of Treatment No Information Insurance Providers Payer Name Payer Address Payer Phone Subscriber Number Group Number Insured Name Patient Relationship to Insured Coverage Start Date Coverage End Date [facility] Be Healthy [address] [place] [address] [phone] [id number] Ksenia Heath Self - patient is the insured 2 [place] Medicaid Standard [address] [place] [address] [phone] [id number] Ksenia Heath Self - patient is the insured 2
== END 2024-10-21 12:59 | disposition home or self-care (01) ==
LOC: HO.HOS 12:26
PROVIDERS: PCP Nurse Practitioner Family; Visit Provider Orthopaedic Surgery
DX: M17.12 Unilateral primary osteoarthritis, left knee (principal)
CPT/HCPCS: 20610; 99213

== ENCOUNTER → 2024-10-21 12:26 | Outpatient (BNVA) | payer OTHER, SELFPAY | PROVIDERS: PCP Nurse Practitioner Family; Visit Provider Orthopaedic Surgery | DX: M17.12 Unilateral primary osteoarthritis, left knee (principal) | CPT/HCPCS: 20610; 99212; J0665; J1100; J2003 ==

== ENCOUNTER 2025-01-16 13:00 | Outpatient (AMB) | payer OTHER, SELFPAY ==
--- NOTE | 2025-01-16 13:01 | A.OFFVIS_ITS ---
Vital Signs 01/16/25 13:07 Height 5 ft 8 in Weight 266 lb BMI 40.4 Intake Visit Reasons: OV- Left knee pain/swelling-3 month follow up Intake Note: Anna is a 43 year old female who presents today for a follow up of her left knee, hx of left knee medial meniscectomy and chondroplasty on 12/16/23. The knee was last injected 10/21/24. Allergies coconut Allergy (Severe, Verified 10/21/24 12:32) Hives carbamazepine (From Tegretol) Allergy (Intermediate, Verified 10/21/24 12:32) Hives cyclobenzaprine (From Flexeril) Allergy (Verified 10/21/24 12:32) Rash progesterone Allergy (Verified 10/21/24 12:32) Hives bupropion (From Wellbutrin) Adverse Reaction (Severe, Verified 10/21/24 12:32) Hives musle relaxer Adverse Reaction (Uncoded 10/21/24 12:32) ineffective, tegretol allergy HPI HPI OV- Left knee pain/swelling-3 month follow up: Details: Anna is a 43 year old female who presents today for a follow up of her left knee, hx of left knee medial meniscectomy and chondroplasty on 12/16/23. The knee was last injected 10/21/24. This injection was very helpful. She states that she was doing well for about 2 and half months when the pain resumed. Intraoperatively she had grade 3 changes of the medial femoral condyle. [facility] Surgical History Hx of hysterectomy Hx of hand surgery Hx of arthroscopy of left knee Social History Household Members: None Housing: Homeless Do you presently have visiting nurse or other home services: No Unable to assess alcohol history related to: Unknown Comment: All counts correct Patient Tobacco Use Status: Current everyday Tobacco user Tobacco use type: Cigarette Cigarette Packs Per Day: 0.5 Cigarettes Per Day: 20 e-Cigarette/Vaping Use: Never Used Second Hand Smoke Exposure: Yes Substance Use Type: Crack/Cocaine, Heroin, Marijuana and Caffiene service: No Current occupational status: employed 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 Arthroscopic portals clean dry and intact. 0-125 degrees of motion. Office Procedures Joint Inj/Aspir; Non-Pain Clin Joint Injection/Drain Details: Injected 1 mL of Decadron and 3 mL 1% lidocaine and 3 mL of 0.25% Marcaine. Site was prepped using aseptic technique. Patient tolerated the procedure well. Shoulders, Hips, Knees, Knee Large Joint Injection : Left Knee Coding Procedure code (CPT) selection complete Assessment & Plan Assessment & Plan (1) Osteoarthritis of left knee: Code(s): M17.12 - Unilateral primary osteoarthritis, left knee Category: Medical Qualifiers: Osteoarthritis type: primary Qualified Code(s): M17.12 - Unilateral primary osteoarthritis, left knee Plan: Had a long discussion regarding treatment options with Anna. I do not recommend surgery. She is too young and the severity of if her arthritis is not sufficient to warrant surgery. I injected her left knee date day and would recommend that she try to wait as long as possible repeat injection. Expressed understanding. Coding Level of Care Code Est Pt Level 3 (81895) Diagnoses Primary osteoarthritis of left knee M17.12 Osteoarthritis type: primary CPT Codes Shoulders, Hips, Knees, - Knee Large Joint Injection : Left Knee ([id number])
[2025-01-16 13:07] VITALS: BMI 40.4
--- OUTSIDE RECORDS SUMMARY | 2025-01-16 14:14 | XMS_ITS | Patient Health Record ---
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 Operator Name Role Phone [facility] Primary Care Provider [facility], [facility] Unavailable [phone] Reason For Referral No Information Plan Of Treatment No Information Insurance Providers Payer Name Payer Address Payer Phone Subscriber Number Group Number Insured Name Patient Relationship to Insured Coverage Start Date Coverage End Date [facility] Be Healthy [address] [place] [phone] [id number] Ksenia Heath Self - patient is the insured 2 [place] Medicaid Standard [address] [place] [address] [phone] [id number] Ksenia Heath Self - patient is the insured 2
== END 2025-01-16 13:20 | disposition home or self-care (01) ==
LOC: HO.HOS 13:01
PROVIDERS: PCP Nurse Practitioner Family; Visit Provider Orthopaedic Surgery
DX: M17.12 Unilateral primary osteoarthritis, left knee (principal)
CPT/HCPCS: 20610; 99213

== ENCOUNTER → 2025-01-16 13:00 | Outpatient (BNVA) | payer OTHER, SELFPAY | PROVIDERS: PCP Nurse Practitioner Family; Visit Provider Orthopaedic Surgery | DX: M17.12 Unilateral primary osteoarthritis, left knee (principal) | CPT/HCPCS: 20610; 99212; J0665; J1100; J2003 ==

== ENCOUNTER 2025-02-20 00:03 | Emergency (ER) | payer OTHER, SELFPAY ==
--- NOTE | ~2025-02-20 | XR_ITS ---
CLINICAL HISTORY: trauma 3 view left hand Comparison: DX/WA/SR - XR HAND 3 OR MORE VIEWS LEFT - 06/12/23 11:26 EST Findings: Bones intact. No dislocations. No significant loss of joint space or osteophytes. No erosions. IMPRESSION: 1. No acute findings This document has been electronically signed by: Paul Mayo MD on 02/20/2025 01:49:55
--- NOTE | ~2025-02-20 | CT_ITS ---
CLINICAL HISTORY: trauma CT head without contrast Comparison: None provided Findings: No intra-axial mass, midline shift, hydrocephalus, or acute hemorrhage. No significant atrophy-like change or white matter disease. The visualized paranasal sinuses and mastoid air cells are normal. The orbits are within normal limits. There is no acute fracture. IMPRESSION: 1. No acute intracranial findings. This document has been electronically signed by: Paul Mayo MD on 02/20/2025 01:50:24
--- NOTE | ~2025-02-20 | XR_ITS ---
CLINICAL HISTORY: trauma 3 view, pelvis and right hip Comparison: None provided Findings: No acute fracture or dislocation. No significant arthritic change. The soft tissues are unremarkable. IMPRESSION: No acute findings. This document has been electronically signed by: Paul Mayo MD on 02/20/2025 01:50:10
[2025-02-20 00:14] VITALS: BP 125/69; PULSE 64; RESP 20; TEMP 36.8; O2SAT 95; BMI 30.2
--- OUTSIDE RECORDS SUMMARY | 2025-02-20 00:45 | XMS_ITS | Patient Health Record ---
Author Organization [facility] Address [address] [place] [address] Care Team Providers Care Head Custodian Name Role Phone [facility] Primary Care Provider [phone] [facility] Unavailable [phone] Reason For Referral No Information Plan Of Treatment No Information Insurance Providers Payer Name Payer Address Payer Phone Subscriber Number Group Number Insured Name Patient Relationship to Insured Coverage Start Date Coverage End Date [facility] Be Healthy [address] [place] [phone] [id number] Ksenia Heath Self - patient is the insured 2 [place] Medicaid Standard [address] [place] [address] [id number] Ksenia Heath Self - patient is the insured 2
--- NOTE | 2025-02-20 01:37 | PC.NURSE ---
pt back from xray at this time, pt medicated per mar, tolerated well. awaiting results
--- NOTE | 2025-02-20 02:12 | ED.GENADULT ---
HPI - General Adult General Chief complaint: Fall Stated complaint: Fell, head and hip injury Time Seen by Provider: 02/20/25 00:33 Source: patient Limitations: no limitations History of Present Illness ED Provider: Marge Osullivan PA-C HPI narrative: 44-year-old female with a history of morbid obesity, osteoarthritis, chronic left-sided low back and pelvic pain, PTSD, depression, prior opiate use disorder in remission who presents after fall at home. Patient states she was racing to get into the bathroom, she subsequently slipped and fell, striking the right side of her head, then the left cheek. During the fall, she also landed on her right hip and left hand. Patient now complains of right-sided low back pain, hip pain and left thumb pain. There was no loss consciousness, the patient does not use a blood thinner. Associated head pain at the site of the fall with nausea. Denies dizziness, no neck pain. Patient was ambulatory after the fall. Related Data Home Medications ?Medication ?Instructions ?Recorded ?Confirmed methadone 10 mg/mL oral concentrate 160 mg PO DAILY 11/27/23 12/16/23 dextroamphetamine-amphetamine ER 30 mg PO DAILY 01/16/25 30 mg 24hr capsule,extend release (Adderall XR) Previous Rx's ?Medication ?Instructions ?Recorded duloxetine 60 mg capsule,delayed 60 mg PO DAILY 30 days #30 caps 07/17/21 release albuterol sulfate 90 mcg/actuation 2 puff inhalation Q4-6H PRN 04/14/24 aerosol inhaler shortness of breath or wheezing #6.7 grams ketorolac 10 mg tablet 10 mg PO Q6H PRN pain #20 tabs 02/20/25 Allergies Allergy/AdvReac Type Severity Reaction Status Date / Time coconut Allergy Severe Hives Verified 02/20/25 00:20 carbamazepine (From Tegretol) Allergy Intermediate Hives Verified 02/20/25 00:20 cyclobenzaprine (From Allergy Rash Verified 02/20/25 00:20 Flexeril) progesterone Allergy Hives Verified 02/20/25 00:20 bupropion (From Wellbutrin) AdvReac Severe Hives Verified 02/20/25 00:20 musle relaxer AdvReac ineffective, Uncoded 02/20/25 00:20 tegretol allergy Review of Systems Review of Systems: Yes all other systems are reviewed and are negative Constitutional: Constitutional: Denies fatigue and Denies fever(s) ENT: Denies neck pain Cardiovascular: Cardiovascular: Denies chest pain and Denies dyspnea Respiratory: Respiratory: Denies dyspnea Gastrointestinal: Gastrointestinal: Denies abdominal pain Musculoskeletal: Musculoskeletal: Reports back pain, Reports arthralgias, Denies joint swelling and Denies neck pain Endocrine: Endocrine: Denies fatigue PMFSH Past Medical History Attestation statement: The following information was validated with the patient. Surgical History Hx of hysterectomy Hx of hand surgery Hx of arthroscopy of left knee Social History Social History Household Members: None Housing: Homeless Do you presently have visiting nurse or other home services: No Comment: All counts correct Patient Tobacco Use Status: Current everyday Tobacco user Tobacco use type: Cigarette Cigarette Packs Per Day: 0.5 Cigarettes Per Day: 20 e-Cigarette/Vaping Use: Never Used Second Hand Smoke Exposure: Yes Substance Use Type: Crack/Cocaine, Heroin, Marijuana and Caffiene Advance Directives: No Advance Directives Information Provided: No service: No Current occupational status: employed 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, 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 Sexual orientation: Did not discuss Physical Exam ED Vital Signs: Vital Signs - 24 hr 02/20/25 00:14 Temperature 98.2 F Pulse Rate 64 Respiratory Rate 20 Blood Pressure 125/69 Pulse Oximetry 95 Oxygen Delivery Method Room Air BMI result Body Mass Index 30.2 Const Other: Alert, appears older than stated age Orientation/consciousness: patient oriented x3 Resp Effort & Inspection: normal respiratory effort Cardio Other: Normal peripheral perfusion Skin Other: Warm dry no rash Neuro General: patient oriented x3, gait normal, no focal motor deficits and CN's II-XI intact bilaterally Extrem Other: No deformity noted over the right hip. Patient has full flexion and extension of the left wrist, she has maintain clinic mgr strength, no deformity over the thumb Psych Other: Cooperative, Medications Administered Discontinued Medications Generic Name Dose Route Start Last Admin Trade Name Freq PRN Reason Stop Dose Admin Ketorolac Tromethamine 15 mg 02/20/25 00:41 02/20/25 01:23 Ketorolac Tromethamine 15 Mg/Ml Vial IM 02/20/25 00:42 15 mg ONCE ONE Administration Methocarbamol 1,500 mg 02/20/25 00:41 02/20/25 01:23 Methocarbamol 750 Mg Tablet PO 02/20/25 00:42 Not Given ONCE ONE Medical Decision Making Medical Decision Making [facility] Narrative: 44-year-old female with a history of morbid obesity, osteoarthritis, chronic left-sided low back and pelvic pain, PTSD, depression, prior opiate use disorder in remission who presents after fall at home. Patient states she was racing to get into the bathroom, she subsequently slipped and fell, striking the right side of her head, then the left cheek. During the fall, she also landed on her right hip and left hand. Patient now complains of right-sided low back pain, hip pain and left thumb pain. There was no loss consciousness, the patient does not use a blood thinner. Associated head pain at the site of the fall with nausea. Denies dizziness, no neck pain. Patient was ambulatory after the fall. Problem: Obesity History: Per patient I have considered the following differential diagnoses: Fracture, dislocation, sprain, contusion, intracranial hemorrhage, skull fracture Plan: The patient's pain is out of proportion with the exam findings, we will scan her head, hip pelvis and hand. I offered muscle relaxant, she declines, giving Toradol for her pain. I have independently reviewed the following tests: X-ray right hip pelvis:Findings: No acute fracture or dislocation. No significant arthritic change. The soft tissues are unremarkable. IMPRESSION: No acute findings. CT brain:Findings: No intra-axial mass, midline shift, hydrocephalus, or acute hemorrhage. No significant atrophy-like change or white matter disease. The visualized paranasal sinuses and mastoid air cells are normal. The orbits are within normal limits. There is no acute fracture. IMPRESSION: 1. No acute intracranial findings. X-ray left hand:Findings: Bones intact. No dislocations. No significant loss of joint space or osteophytes. No erosions. IMPRESSION: 1. No acute findings Differential Diagnosis Differential Diagnoses: The differential diagnosis associated with the presentation includes See medical decision-making Admission/Observation Consideration of admission/observation: Escalation of care including admission/observation considered Not applicable Radiology Impression Discussion of test interpretation with radiology: I have reviewed the radiologist's reading. Discharge Plan Discharge Clinical Impression: Contusion Patient Disposition: Home, Self-Care Instructions: Bone Bruise (ED) Additional Instructions: The CT scan of your head was negative for acute injury. The x-ray of the hand was negative for fracture or dislocation. The x-ray of the pelvis, low back and hip was negative for acute injury as well. You sustained contusions. See home care instructions. Use the ketorolac as needed for pain, take this medication with food. Follow up with your primary care provider as needed. Prescriptions: New ketorolac 10 mg tablet 10 mg PO Q6H PRN (Reason: pain) Qty: 20 0RF Rx Instructions: maximum total duration of 5 days from all oral, intranasal, or parenteral formulations. The patient received an intramuscular dose of Toradol here in the emergency room No Action duloxetine 60 mg Capsule,Delayed Release(Dr/Ec) 60 mg PO DAILY 30 Days Qty: 30 0RF albuterol sulfate 90 mcg/actuation HFA aerosol inhaler 2 puff inhalation Q4-6H PRN (Reason: shortness of breath or wheezing) Qty: 6.7 0RF methadone 10 mg/mL concentrate 160 mg PO DAILY Rx Instructions: 95 qam 70 qhs dextroamphetamine-amphetamine [Adderall XR] 30 mg capsule,extended release 24hr 30 mg PO DAILY Stand Alone Forms: Work/School Release Print Language: Spanish
[2025-02-20 03:14] VITALS: BP 139/71; PULSE 77; RESP 16; TEMP 36.5; O2SAT 98
[2025-02-20 03:29] VITALS: BP 139/71; PULSE 77; RESP 16; TEMP 36.5; O2SAT 98
== END 2025-02-20 03:15 | disposition home or self-care (01) ==
PROVIDERS: Emergency Provider Emergency Medicine
DX: S70.01XA Contusion of right hip, initial encounter (principal); M54.9 Dorsalgia, unspecified; M79.645 Pain in left finger(s); W01.198A Fall on same level from slipping, tripping and stumbling with subsequent striking against other object, initial encounter; Y93.89 Activity, other specified; Y92.091 Bathroom in other non-institutional residence as the place of occurrence of the external cause; Y99.8 Other external cause status; Z72.0 Tobacco use
CPT/HCPCS: 70450; 73130; 73502; 96372; 99284; J1885

== ENCOUNTER → 2025-02-20 00:41 | Outpatient (BNV) | payer OTHER, SELFPAY | PROVIDERS: Visit Provider Radiology Diagnostic Radiology | DX: S00.93XA Contusion of unspecified part of head, initial encounter (principal); M25.551 Pain in right hip; M79.645 Pain in left finger(s); W01.0XXA Fall on same level from slipping, tripping and stumbling without subsequent striking against object, initial encounter | CPT/HCPCS: 70450; 73130; 73502 ==

== ENCOUNTER 2025-04-24 09:53 | Outpatient (AMB) | payer OTHER, SELFPAY ==
[2025-04-24 09:54] VITALS: BMI 30.1
--- NOTE | 2025-04-24 09:54 | MHC.OFFVIS ---
Vital Signs 04/24/25 09:54 Height 5 ft 8 in Weight 198 lb BMI 30.1 Intake Visit Reasons: OV- Left Knee OA - Last injection 01/16/25 Intake Note: Ksenia is a 44 year old female who presents today for a follow up of her Left Knee OA. hx of left knee medial meniscectomy and chondroplasty on 12/16/23. We previously discussed TKA, but her OA is not at a point that would warrant surgery. We last injected the Left knee on 01/16/25 & it was recommended that she hold off from repeat injections as long as possible. At this time the cortisone was not as helpful as it was previously. She is interested in having Gel injections. Allergies coconut Allergy (Severe, Verified 04/24/25 09:55) Hives carbamazepine (From Tegretol) Allergy (Intermediate, Verified 04/24/25 09:55) Hives cyclobenzaprine (From Flexeril) Allergy (Verified 04/24/25 09:55) Rash progesterone Allergy (Verified 04/24/25 09:55) Hives bupropion (From Wellbutrin) Adverse Reaction (Severe, Verified 04/24/25 09:55) Hives musle relaxer Adverse Reaction (Uncoded 02/20/25 00:20) ineffective, tegretol allergy HPI HPI OV- Left Knee OA - Last injection 01/16/25: Details: Ksenia is a 44 year old female who presents today for a follow up of her Left Knee OA. hx of left knee medial meniscectomy and chondroplasty on 12/16/23. We previously discussed TKA, but her OA is not at a point that would warrant surgery. We last injected the Left knee on 01/16/25 & it was recommended that she hold off from repeat injections as long as possible. At this time the cortisone was not as helpful as it was previously. She is interested in having Gel injections. She feels like she re-injured her knee because the pain is different focal and wants to get an MRI. PFSH Surgical History Hx of hysterectomy Hx of hand surgery Hx of arthroscopy of left knee Social History Household Members: None Housing: Homeless Do you presently have visiting nurse or other home services: No Unable to assess alcohol history related to: Unknown Comment: All counts correct Patient Tobacco Use Status: Current everyday Tobacco user Tobacco use type: Cigarette Cigarette Packs Per Day: 0.5 Cigarettes Per Day: 20 e-Cigarette/Vaping Use: Never Used Second Hand Smoke Exposure: Yes Substance Use Type: Crack/Cocaine, Heroin, Marijuana and Caffiene service: No Current occupational status: employed 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 No effusion. 0-130 degrees of motion. Vital Signs: BMI result Body Mass Index 30.1 Assessment & Plan Assessment & Plan (1) Osteoarthritis of left knee: Code(s): M17.12 - Unilateral primary osteoarthritis, left knee Category: Medical Qualifiers: Osteoarthritis type: primary Qualified Code(s): M17.12 - Unilateral primary osteoarthritis, left knee Plan: Son the symptoms of chronic arthritis. Her symptoms have changed a little and that there are more focal and she feels like she re-injured her knee. Injections have been helpful but she is concerned now because of the sharp medial-sided pain. (2) S/P left knee arthroscopy: Onset Date: ~12/16/23 Comment: Left knee medial meniscectomy and chondroplasty; NE Code(s): Z98.890 - Other specified postprocedural states Category: Surgical Plan: 16 months status post left knee arthroscopy with partial medial meniscectomy. She feels like she re-injured her knee. She does have a positive Frank's so left knee MRI was ordered. May be part and parcel of her ongoing osteoarthritis. Orders: Orders MR knee LT wo con Today M17.12 - Unilateral primary osteoarthritis, left knee Coding Level of Care Code Est Pt Level 3 (51849) Diagnoses Primary osteoarthritis of left knee M17.12 Osteoarthritis type: primary S/P left knee arthroscopy Z98.890
== END 2025-04-24 11:09 | disposition home or self-care (01) ==
LOC: HO.HOS 09:54
PROVIDERS: PCP Nurse Practitioner Family; Visit Provider Orthopaedic Surgery
DX: M17.12 Unilateral primary osteoarthritis, left knee (principal); M25.562 Pain in left knee; Z47.89 Encounter for other orthopedic aftercare
CPT/HCPCS: 99213

== ENCOUNTER → 2025-04-24 09:53 | Outpatient (BNVA) | payer OTHER, SELFPAY | PROVIDERS: PCP Nurse Practitioner Family; Visit Provider Orthopaedic Surgery | DX: M17.12 Unilateral primary osteoarthritis, left knee (principal); Z98.890 Other specified postprocedural states | CPT/HCPCS: 99212 ==